=== PATIENT | female | born 1955 | race Caucasian/White ===

== ENCOUNTER → 2016-03-01 | Outpatient (CLI) | payer BC ==
--- NOTE | 2016-03-01 11:40 | DX ---
PA lateral chest x-ray 0946 hours. History: Followup pneumonia. Findings: Comparison to February 07, 2016. There is dense consolidation that has increase in bone both lung bases probably more confluent in the lingula and right lower lobe. There is also subtle focal infiltrate at the right lung apex has devel oped. There are no effusions. Heart size and pulmonary vasculature remain normal. Osseous structures are unchanged. Impression: 1. Interval increase in dense consolidation/pneumonia involving both lung bases. There is also focal new smaller patchy infiltrate at the right lung apex. Rule out possible atypical pneumonia. This study was discussed by telephone with Dr. Amairani Maldonado at 1135 hours.
== END ==
LOC: BMCIMAGING 09:45
PROVIDERS: ATTEND Internal Medicine
DX: J18.9 Pneumonia, unspecified organism (principal)

== ENCOUNTER 2016-03-03 06:11 | Inpatient (IN) | payer BC ==
--- NOTE | 2016-03-03 06:30 | CPEKG ---
Heart Rate: 85 RR Interval: 706 P-R Interval: 136 QRSD Interval: 80 QT Interval: 348 QTC Interval: 414 P [place]: 69 QRS [place]: 69 T Wave [place]: -19 EKG Severity - ABNORMAL ECG - EKG Impression: SINUS RHYTHM EKG Impression: BORDERLINE INFERIOR Q WAVES EKG Impression: ABNORMAL T, CONSIDER ISCHEMIA, INFERIOR LEADS Electronically Signed By: Cori Browning 04-Mar-2016 23:11:48
[2016-03-03] MEDS ORDERED: NS 1,000 ML IV ONE (06:47)
[2016-03-03 06:55] LABS: % IMMATURE GRANULYOCYTES 0.4 % (0.0-1.1); ABSOLUTE IMMATURE GRANULOCYTES 0.04 10^3/uL (0.00-0.10); ADD DIFF? NO; ADD MORPH? NO; ADD SCAN? NO; ATYPICAL LYMPHOCYTE FLAG 0 (0-99); FRAGMENT RBC FLAG 0 (0-99); HEMATOCRIT 39.9 % (38.0-47.0); LEFT SHIFT FLG 0 (0-99); LIPEMIA HEMOLYSIS FLAG 80 (0-99); MEAN CELL HEMOGLOBIN 29.7 pg (27.9-34.1); MEAN CELL HEMOGLOBIN CONCENTR. 32.6 g/dL (32.4-36.7); MEAN CELL VOLUME 91.3 fL (81.5-99.8); MEAN PLATELET VOLUME 9.8 fL (8.7-11.7); PLATELET CLUMPS FLAG 30 (0-99); PLATELET COUNT 546 10^3/uL (150-400); RED BLOOD CELL COUNT 4.37 10^6/uL (4.18-5.33); RED CELL DISTRIBUTION WIDTH 12.5 % (11.5-15.2)
[2016-03-03 07:05] LABS: ANION GAP 15 mEq/L (8-16); CALCIUM 9.2 mg/dL (8.5-10.4); CARBON DIOXIDE 25 mEq/l (22-31); CHLORIDE 105 mEq/L (97-110); CREATININE 0.6 mg/dL (0.6-1.0); GLOMERULAR FILTRATION RATE > 60; GLUCOSE 103 mg/dL (70-100); POTASSIUM 4.5 mEq/L (3.5-5.2); SODIUM 145 mEq/L (134-144)
[2016-03-03] MEDS ORDERED: KETOROLAC 30 MG/1 ML SDV IVP ONE (07:08)
[2016-03-03 07:16] LABS: TROPONIN I < 0.012 ng/mL (0-0.034)
--- NOTE | 2016-03-03 07:29 | EDPHY ---
H & P Stated Complaint: PNA Dx'd in January, with dyspnea and chest discomfort Time Seen by Provider: 03/03/16 06:32 HPI/ROS: HPI The patient presents with cough, back pain, dizziness for the last several days. On February 06 she was diagnosed with a pneumonia based on a chest x- ray, she was started on azithromycin though never entirely improved. She had continued pain, shortness of breath and cough and saw her primary care doctor 2 days ago, she was diagnosed with bilateral pneumonia and started on Levaquin, supplemental oxygen, albuterol nebulizer. For the last 2 days she has not been doing well, unable to sleep, with continued dizziness and generalized malaise. She lives alone and is having difficulty going up and down the steps because of all of her symptoms. She has not had a fever. REVIEW OF SYSTEMS Constitutional: No fever, no chills. Eyes: No discharge. ENT: No sore throat. Cardiovascular: + chest pain, no palpitations. Respiratory: +cough, + shortness of breath. Gastrointestinal: No abdominal pain, no vomiting. Genitourinary: No hematuria. Musculoskeletal: No back pain. Skin: No rashes. Neurological: No headache. PMHx: History of colon cancer Soc Hx: Lives at home by herself PHYSICAL General Appearance: Alert, no distress Eyes: Pupils equal and round no pallor or injection ENT, Mouth: Mucous membranes moist Respiratory: There are no retractions, lungs are clear to auscultation Cardiovascular: Regular rate and rhythm Gastrointestinal: Abdomen is soft and non-tender, no masses, bowel sounds normal Neurological: A&O, moves all extremities Skin: Warm and dry, no rashes Musculoskeletal: Neck is supple non tender Extremities: symmetrical, full range of motion Psychiatric: Patient is oriented X 3, there is no agitation Source: Patient Exam Limitations: No limitations - Personal History Current Tetanus/Diphtheria Vaccine: No - Medical/Surgical History Hx Asthma: No Hx Chronic Respiratory Disease: No Hx Diabetes: No Hx Cardiac Disease: No Hx Renal Disease: No Hx Cirrhosis: No Hx Alcoholism: No Hx HIV/AIDS: No Hx Splenectomy or Spleen Trauma: No Other PMH: PSHx: colon resection, 2 hernia repair, vulvectomy, heart murmur, vasovagal syncope. PMHx: diverticulitis, IBS - Social History Smoking Status: Never smoked Constitutional: Initial Vital Signs Temperature (C) 37 C 03/03/16 06:15 Heart Rate 91 03/03/16 06:15 Respiratory Rate 18 03/03/16 06:15 Blood Pressure 137/101 H 03/03/16 06:15 O2 Sat (%) 91 L 03/03/16 06:15 O2 Delivery Mode Nasal Cannula O2 (L/minute) 2 Allergies/Adverse Reactions: ciprofloxacin Allergy (Verified 03/03/16 06:14) clindamycin Allergy (Verified 03/03/16 06:14) Home Medications: Medication Instructions Recorded Advil 03/03/16 Albuterol 03/03/16 levAQUIN 03/03/16 Medical Decision Making - Diagnostics EKG Interpretation: EKG: Complete interpretation has been separately recorded in the [facility]) archive. Summary impression: T-wave inversions in 3, AVF, V1, no old for comparison Imaging: Chest x-ray two views shows bilateral lower lobe infiltrates, similar to prior chest x-ray 2 days ago interpreted by me, radiology interpretation is pending ED Course/Re-evaluation: In the ER, the patient was given IV fluids. Basic labs were obtained including blood cultures. Her vital signs were stable except for hypoxia which improved with 2 L of oxygen via nasal cannula. Chest x-ray was obtained which shows continued bilateral lower lobe pneumonia. She was started on azithromycin and ceftriaxone. Her basic labs were unremarkable with a normal BUN and white blood cell count. Given that she is not doing well at home despite maximum outpatient treatment I plan to admit her to the hospitalist service. I discussed the case with Azul Chadwick and we plan to admit the patient. Differential Diagnosis: This is a relatively healthy 60-year-old female with a remote history of colon cancer who presents from home after being diagnosed with a pneumonia bilaterally 2 days ago with worsening symptoms of back pain, dizziness, general malaise. Differential diagnosis includes pneumonia, pleural effusion, parapneumonic effusion, sepsis. - Data Points Laboratory Results: Laboratory Results 03/03/16 06:35 03/03/16 06:35 03/03/16 06:35 WBC 9.43 10^3/uL (3.80-9.50) RBC 4.37 10^6/uL (4.18-5.33) Hgb 13.0 g/dL (12.6-16.3) Hct 39.9 % (38.0-47.0) MCV 91.3 fL (81.5-99.8) MCH 29.7 pg (27.9-34.1) MCHC 32.6 g/dL (32.4-36.7) RDW 12.5 % (11.5-15.2) Plt Count 546 H 10^3/uL (150-400) MPV 9.8 fL (8.7-11.7) Neut % (Auto) 71.0 % (39.3-74.2) Lymph % (Auto) 14.1 L % (15.0-45.0) [place] % (Auto) 8.8 % (4.5-13.0) Eos % (Auto) 5.5 % (0.6-7.6) Baso % (Auto) 0.2 L % (0.3-1.7) Nucleat RBC Rel Count 0.0 % (0.0-0.2) Absolute Neuts (auto) 6.69 H 10^3/uL (1.70-6.50) Absolute Lymphs (auto) 1.33 10^3/uL (1.00-3.00) Absolute Monos (auto) 0.83 H 10^3/uL (0.30-0.80) Absolute Eos (auto) 0.52 H 10^3/uL (0.03-0.40) Absolute Basos (auto) 0.02 10^3/uL (0.02-0.10) Absolute Nucleated RBC 0.00 10^3/uL (0-0.01) Immature Gran % 0.4 % (0.0-1.1) Immature Gran # 0.04 10^3/uL (0.00-0.10) Sodium 145 H mEq/L (134-144) Potassium 4.5 mEq/L (3.5-5.2) Chloride 105 mEq/L (97-110) Carbon Dioxide 25 mEq/l (22-31) Anion Gap 15 mEq/L (8-16) BUN 8 mg/dL (7-23) Creatinine 0.6 mg/dL (0.6-1.0) Estimated GFR > 60 Glucose 103 H mg/dL (70-100) Calcium 9.2 mg/dL (8.5-10.4) Troponin I < 0.012 ng/mL (0-0.034) Medications Given: Discontinued Medications Sodium Chloride (Ns) 1,000 mls @ 0 mls/hr IV ONCE ONE PRN Reason: Wide Open Stop: 03/03/16 06:48 Last Admin: 03/03/16 06:49 Dose: 1,000 mls Ketorolac Tromethamine (Toradol) 30 mg IVP EDNOW ONE Stop: 03/03/16 07:09 Last Admin: 03/03/16 07:32 Dose: 30 mg Departure - Departure Disposition: [facility] Inpatient Acute Clinical Impression: Pneumonia, Hypoxia Condition: Fair
[2016-03-03] MEDS ORDERED: cefTRIAXone 1 GM in D5W 50 ML IV ONE (07:34)
[2016-03-03] MEDS ORDERED: AZITHROMYCIN 250 MG TAB PO ONE (07:35)
--- NOTE | 2016-03-03 08:26 | DX ---
PA and Lateral Chest March 03, 2016 Clinical Indications: Worsening pneumonia. Comparison: March 01, 2016, February 07, 2016. Findings: Since two days prior, there is no significant change in the bilateral lower lobe consolidat ion. Costophrenic angles are clear. Bones are grossly unremarkable. Impression: Stable bilateral lower lobar consolidation.
[2016-03-03] MEDS ORDERED: ALBUTEROL 3 ML DEYVIAL IH PRN (09:52)
[2016-03-03] MEDS: HYDROCODONE/APAP 5/325 TAB PO PRN (10:31)
--- NOTE | 2016-03-03 10:48 | GHP ---
[f rep st] HISTORY AND PHYSICAL DATE OF ADMISSION: 03/03/2016 CHIEF COMPLAINT: Dizziness, back pain, general malaise. HPI: This is a 60-year-old female, with a history of colon cancer, who is not immunosuppressed, who was first diagnosed with pneumonia on February 06 by her primary care provider and was prescribed a Z-Sergio, which she completed after 5 days. After finishing the azithromycin, she felt that she was not really better but was not clearly worse. Since the onset of symptoms, she has continued to have fevers and chills, which she has taken Advil for around the clock for about the past month. The patient reports nonproductive cough. She had some back pain. Three days ago, she felt that she really was not getting better and went to see her primary care provider again, at which time a chest x-ray was done, which confirmed persistent bibasilar pneumonia. She has since started Levaquin, for which she has taken for 2 days. During her last office visit, she was noted to be hypoxic and was prescribed home oxygen. At 3:30 a.m. this morning, she woke up with back pain, chills and felt dizzy and decided to come to the emergency department for further evaluation. PAST MEDICAL HISTORY: 1. Colon cancer, status post resection and chemotherapy in 1992. 2. Lichen planus. 3. IBS. 4. Diverticulitis. 5. Jugular vein clot PAST SURGICAL HISTORY: 1. Hernia repair. 2. Colon resection. HOME MEDICATIONS: Reviewed. Refer to [facility] for details. ALLERGIES: Clindamycin and Cipro causes vomiting. SOCIAL HISTORY: The patient drinks alcohol occasionally. She denies any tobacco or illicit drug use. FAMILY HISTORY: She was adopted. REVIEW OF SYSTEMS: A comprehensive 10-point review of systems was done and is negative, except for those mentioned in HPI and below. Skin: She denies any active lichen planus. She is not on any immunosuppressive agents at this time for treatment. Rheumatologic: Denies any new joint pain, other than some pain and achiness in her shoulders and her back. PHYSICAL EXAM: VITAL SIGNS: Blood pressure 122/84, heart rate 74, respiratory rate 14, O2 saturation 95% on room air. Temperature afebrile. GENERAL: No acute distress. HEAD: Normocephalic, atraumatic. Eyes are PERRLA. Sclerae anicteric. MOUTH: Moist mucous membranes. NECK: Supple. No lymphadenopathy. CARDIOVASCULAR: S1, S2. No JVD. No lower extremity edema. PULMONARY: Bibasilar rales. There is no respiratory distress. There is no dullness to percussion. There are no wheezes. ABDOMEN: Soft, nontender, nondistended. No guarding or rebound tenderness. Normoactive bowel sounds. EXTREMITIES: No clubbing or cyanosis. NEUROLOGIC: Cranial nerves 2-12 grossly intact. No focal motor or sensory deficits. SKIN: Clear. No rashes. DIAGNOSTICS: WBC 9.4, hemoglobin 13, hematocrit 39.9, platelets 546. Sodium 145, potassium 4.5, chloride 105, CO2 25, BUN 8, creatinine 0.6, glucose 103, troponin less than 0.012. EKG, which I visualized and personally interpreted, shows sinus rhythm, rate 85 beats per minute with some T-wave inversion in leads 3 and AVF. Chest x-ray, which I visualized and personally interpreted, shows stable bilateral lower lobar consolidations. ASSESSMENT AND PLAN: This is a 60-year-old female, diagnosed with: 1. Pneumonia on 02/07/2016 and was treated with a Z-Sergio presenting with bibasilar lobar consolidations, most likely due to incompletely treated community-acquired pneumonia. The patient was started on levothyroxine, by her primary care provider, which will be continued. I have discussed the case with Dr. Tunde Almeida from Pulmonology who will consult as well. For now, we will defer further testing pending how she does with continued antibiotic treatment. 2. Back pain, most likely due to above. Plan is treat supportively with NSAIDs and Tylenol and Vicodin as needed for breakthrough pain. Will consider adding a D-dimer and CT angio of the chest, if it persists, to rule out pulmonary embolism. 3. EKG with small Q in lead 3 and inverted T in lead 3. 4. Given this finding, will send a D-dimer and consider CT angiogram of the chest if positive. 5. The patient will be admitted to the hospital under observation status for now, pending further workup which may eventually qualify her for inpatient hospitalization. ADDENDUM: Dimer is elevated. Patient continues to have back pain and shortness of breath. She does have a history of a jugular vein clot associated with a port. Will proceed with CTA chest to rule out pulmonary embolism /[id number]/MODL MTDD
[2016-03-03] MEDS: ONDANSETRON 4 MG/2 ML VIAL IVP PRN (13:16)
[2016-03-03] MEDS ORDERED: IOPAMIDOL (ISOVUE 370) 75 ML BTL IV ONE (15:31)
--- NOTE | 2016-03-03 16:30 | CT ---
CT Pulmonary Angiogram History: Chest pain, pneumonia. Comparison: PA and lateral chest March 03, 2016. CT abdomen and pelvis March 26, 2008. Technique: Axial contrast-enhanced images were obtained through the chest following the uneventful in travenous administration of 90 mL Isovue-370. Creatinine is 0.6. Multiplanar reformations were perfo rmed through the pulmonary arteries. Dose reduction techniques were utilized. Findings: This is a good quality study with visualization of the vessels to the subsegmental level. T here is no pulmonary embolus. There is patchy multifocal consolidation bilaterally, most prominent in the lingula, right middle lobe, and bilateral lower lobes. Right lower lobe bulla is noted. Right lo wer lobe granuloma is present. Heart size is normal. The interventricular septum is normal. The aorta is normal caliber without dissection. Mildly prominent lymph nodes may be reactive. A reference 1.2 x 1.3 cm AP window node is present (series 5 image 71). The bones are normal for age. A 2.4 cm cyst in the dome of the liver has increased in size since 2008. A right hepatic hemangioma i s poorly characterized on today's study due to technique. A subcentimeter left hepatic hypodensity is too small to characterize, statistically likely to represent cyst. Impressions 1. No visible pulmonary embolus. 2. Multifocal consolidation consistent with pneumonia. Radiographic follow up is recommended to resol ution. 3. Mildly prominent mediastinal and hilar lymph nodes, likely reactive. CT follow up when the patient 's pneumonia has cleared. 4. Additional findings as above. Findings and recommendations discussed with Karyn, the patient's nurse, today (March 03, 2016), at 1 620 hours.
[2016-03-03] MEDS: IBUPROFEN 600 MG TAB PO PRN (17:16)
[2016-03-03] MEDS: guaiFENesin 600 MG TAB.ER PO SCH (21:52)
[2016-03-04] MEDS: IBUPROFEN 600 MG TAB PO PRN ×3 (01:44→14:32)
[2016-03-04 05:21] LABS: % IMMATURE GRANULYOCYTES 0.5 % (0.0-1.1); ABSOLUTE IMMATURE GRANULOCYTES 0.04 10^3/uL (0.00-0.10); ADD DIFF? NO; ADD MORPH? NO; ADD SCAN? NO; ATYPICAL LYMPHOCYTE FLAG 0 (0-99); FRAGMENT RBC FLAG 0 (0-99); HEMATOCRIT 33.2 % (38.0-47.0); HEMOGLOBIN 10.9 g/dL (12.6-16.3); LEFT SHIFT FLG 0 (0-99); LIPEMIA HEMOLYSIS FLAG 80 (0-99); MEAN CELL HEMOGLOBIN CONCENTR. 32.8 g/dL (32.4-36.7); MEAN CELL VOLUME 91.5 fL (81.5-99.8); MEAN PLATELET VOLUME 9.9 fL (8.7-11.7); PLATELET CLUMPS FLAG 20 (0-99); PLATELET COUNT 461 10^3/uL (150-400); RED BLOOD CELL COUNT 3.63 10^6/uL (4.18-5.33); RED CELL DISTRIBUTION WIDTH 12.6 % (11.5-15.2)
[2016-03-04 05:35] LABS: ALANINE AMINOTRANSFERASE 31 IU/L (9-52); ALBUMIN 2.5 g/dL (3.5-5.0); ALKALINE PHOSPHATASE 124 IU/L (38-126); ANION GAP 9 mEq/L (8-16); ASPARTATE AMINOTRANSFERASE 24 IU/L (14-46); BILIRUBIN,TOTAL 0.4 mg/dL (0.1-1.4); CALCIUM 8.6 mg/dL (8.5-10.4); CARBON DIOXIDE 27 mEq/l (22-31); CHLORIDE 105 mEq/L (97-110); CREATININE 0.5 mg/dL (0.6-1.0); GLOMERULAR FILTRATION RATE > 60; GLUCOSE 97 mg/dL (70-100); POTASSIUM 4.6 mEq/L (3.5-5.2); SODIUM 141 mEq/L (134-144); TOTAL PROTEIN 5.3 g/dL (6.3-8.2)
[2016-03-04] MEDS ORDERED: LEVALBUTEROL 1.25 MG/3 ML DEYVIAL IH PRN (09:25)
--- NOTE | 2016-03-04 10:07 | GCON ---
[f rep st] CONSULTATION PULMONARY CONSULTATION. DATE OF CONSULTATION: 03/03/2016 REASON FOR CONSULTATION: Pneumonia. HISTORY: The patient is a very pleasant, healthy 60-year-old, who was admitted early this morning with pneumonia. Her recent history is pertinent for 1 month of feeling poorly, with pulmonary symptoms. She developed increasing shortness of breath associated with cough. She had to stop her usual daily workouts and had difficult time with stairs. She was seen by her primary care provider. Chest x-ray at that time showed bibasilar infiltrates. She was placed on azithromycin however she did not significantly improve with this. Her symptoms persisted. She continued to have cough, shortness of breath and this was associated with fevers, chills, and sweats. She had malaise and fatigue. However, she did not return to her primary care physician at that time. She finally went back and was seen a couple a days ago. She was placed on Levaquin and an inhaler. Chest x-ray was repeated which showed persistent and more dense , slightly more extensive bibasilar infiltrates. This has been associated with some back achiness as well. She has taken the Levaquin for a couple a days, but feels that she is not getting any better, perhaps getting worse. When she was last seen she was also found to be mildly hypoxemic and was sent home on oxygen. She presented to the emergency department this morning secondary to lack of improvement. PAST MEDICAL HISTORY: Is remarkable for colon cancer. She was resected and treated with chemotherapy over 20 years ago. There is no history of recurrent disease. She has a history of lichen planus and uses topical steroids, irritable bowel disease, history of diverticulitis, and a clot related to her port during chemotherapy PAST SURGICAL HISTORY: Is remarkable for partial colectomy for colon cancer and a herniorrhaphy. HOME MEDICATIONS: Included Levaquin, albuterol and oxygen which was started 2 days prior. She takes no other medications on a regular basis. She has been taking ibuprofen every 4-6 hours secondary to her recent symptoms. SOCIAL HISTORY: She is . She is a never smoker. Significant alcohol is negative. She does office work. No one else has been particularly ill that she has been in contact with. She has not traveled recently. She has no other exposures, no hot tub, does not have birds or exotic animals, etc. FAMILY HISTORY: Negative/noncontributory as she is adopted. REVIEW OF SYSTEMS: She has back pain which is achy, across the low to midback, not pleuritic. She has had no significant GI symptoms, no loss of consciousness , no nausea or vomiting. She has no history of heart or lung disease previously. There is no history of collagen vascular disease. There is no history of renal disease. PHYSICAL EXAMINATION: GENERAL: Reveals a very pleasant woman who is in no distress. VITAL SIGNS: Oxygen is in place at 2 L with saturations in the low 90s. Blood pressure is 120/80, respiratory rate 16, heart rate 72. She is afebrile, and has been so since admission. HEENT: Unremarkable for lymphadenopathy or thyromegaly. There is no pharyngitis. The chest reveals bibasilar rales with some consolidative changes. There are no wheezes, no rhonchi currently. HEART: Regular in rate and rhythm without significant murmur. There are no gallops. ABDOMEN: Soft, nontender. Bowel sounds are present. There is no organomegaly. EXTREMITIES: Unremarkable for edema, cords , or tenderness. SKIN: Without rash. NEUROLOGIC: Examination is nonfocal/ normal. DATABASE: Chest x-ray as described above, with bibasilar infiltrates, more dense than her x-ray done 3-[address] scan of the chest was done. There was no evidence of pulmonary embolic disease. There is consolidation consistent with her x-ray at the bases. This is patchy, present in the lower lobes as well as the lingula and middle lobes. Minimally enlarged lymph nodes were noted, probably reactive. LABORATORY: White blood cell count is 9400, hematocrit 39, platelets 546,000. Basic metabolic panel was within normal limits, troponin negative. ASSESSMENT: Community-acquired pneumonia. I think her course is compatible with pneumonia, probably only partially treated by azithromycin initially. Despite persistence and progression of her symptoms, she delayed followup thinking she might get better. She has been started on Levaquin which is appropriate. She was quite tachycardic and uncomfortable with beta agonists, and these will be held for now. Alternative diagnoses seem less likely. Inflammatory lung disease cannot be excluded at this time; however, there is no history or suggestion of this. If her pneumonia were not to improve then further evaluation for unusual inflammatory disorders would be done. Clinically , she is doing quite well. She is mildly hypoxemic, looks well, is not tachypneic or tachycardic. Continuing levofloxacin would be appropriate. Beta agonist can be given if needed. Because of her reaction to albuterol, Xopenex would be of preference. PLAN AND RECOMMENDATIONS: The patient will be followed with you. Antibiotics will be continued. Inflammatory screening labs will be ordered. She should be encouraged to cough and expectorates if she has sputum. Ambulation is encouraged. I anticipate that she will require approximately 3 days of hospitalization for pneumonia, longer if she does not respond. /[id number]/MODL MTDD
[2016-03-04 10:18] LABS: HEMATOCRIT 33.2 % (38.0-47.0)
[2016-03-04] MEDS: ENOXAPARIN 40 MG/0.4 ML SYR SC SCH (10:49)
[2016-03-04] MEDS: guaiFENesin 600 MG TAB.ER PO SCH (11:03)
[2016-03-04 11:29] LABS: SEDIMENTATION RATE > 145 MM/HR (0-30)
--- NOTE | 2016-03-04 15:28 | HOSPPROG ---
Hospitalist Progress Note Assessment/Plan: Patient is a 60-year-old female with a history of colon cancer who initially had pneumonia on February 06. She was treated with azithromycin and felt like she has never really gotten better. Since her onset of symptoms she has had fever and chills. She has taken Advil around the clock for the past month. She woke up again with back pain chills and felt dizzy and came to the emergency room further evaluation. #. community-acquired pneumonia/bilateral lobe * chest x-ray shows stable bilateral lower lobar consolidations * she is on Levaquin * current blood culture show no growth * has been afebrile and with a stable white blood cell count #. Acute hypoxemic respiratory failure * requiring 4 liters of O2 * will follow #. GERD * not on treatment * has reflux symptoms * start PPI #.anemia * repeat labs in a.m. #. Osteoporosis: on Vitamin D * patient is very active/goes to the gym 4 x week #. back pain * D-dimer was elevated * a CTA of the chest was performed which was negative for a PE * encouraged her to alternate Tylenol with ibuprofen #. Mildly prominent mediastinal and hilar lymph nodes/ likely reactive * CT f/u in the future #. Hx of colon cancer s/p resection and chemo in 1992 #. plan: patient will require another midnight stay/ on 4 liters of oxygen/ will start PPI, get repeat labs in a.m. Subjective: Rhianna feels tired and worn out. Objective: Vital Signs Temp Pulse Resp BP Pulse Ox 36.8 C 76 18 123/71 H 93 03/04/16 15:07 03/04/16 15:07 03/04/16 15:07 03/04/16 15:07 03/04/16 15:07 Laboratory Results 03/04/16 04:14 03/04/16 04:14 03/03/16 03/04/16 03/05/16 05:59 05:59 05:59 Intake Total 1550 Output Total 100 Balance 1550 -100 - Physical Exam Constitutional: no apparent distress, No not in pain (back) Eyes: PERRL Ears, Nose, Mouth, Throat: hearing normal Cardiovascular: regular rate and rhythym, no murmur, rub, or gallop Respiratory: rhonchi (right base, few scattered) Skin: warm, normal color Musculoskeletal: full muscle strength Neurologic: AAOx3 Psychiatric: interacting appropriately ICD10 Worksheet Patient Problems: Problems Problem Status Diagnosed Hypoxia Acute Pneumonia Acute
[2016-03-04] MEDS ORDERED: GUAIFENESIN/DM 10 ML UDCUP PO PRN (16:03)
[2016-03-04] MEDS ORDERED: MELATONIN 3 MG TAB PO PRN (16:04)
[2016-03-04] MEDS: PANTOPRAZOLE SODIUM 40 MG TAB PO SCH (18:12)
--- NOTE | 2016-03-04 18:19 | PDINTPN ---
[facility] Progress Note Assessment/Plan: Assessment: Community-acquired pneumonia. On Levaquin. Clinically doing well. No significant secretions. Rales persist. Plan: Continue present antibiotics, Xopenex if needed. Mucolytics likely not to be helpful at this time. Recommend keeping her in the hospital into Sunday. Follow-up chest x-ray at that time. Further serologies pending. Subjective: Doing okay. Feels her breathing is little better. Energy somewhat better. Has low back pain, dull, on the right. Not bringing up any sputum. Not much cough. Has had some sweats without significant fevers Objective: Vital Signs Temp Pulse Resp BP Pulse Ox 36.8 C 76 18 123/71 H 93 03/04/16 15:07 03/04/16 15:07 03/04/16 15:07 03/04/16 15:07 03/04/16 15:07 Laboratory Tests 03/04/16 04:14 Hct 33.2 L Sodium 141 Potassium 4.6 Chloride 105 Carbon Dioxide 27 BUN 8 Creatinine 0.5 L Calcium 8.6 Total Bilirubin 0.4 ALT 31 Albumin 2.5 L Rheum Factor Semi-Quant < 8.6 Mycoplasma pneumon IgM NEGATIVE Physical Exam - Physical Exam General Appearance: alert, no apparent distress EENT: other (Nasal cannula 3 L) Neck: normal inspection Respiratory: lungs clear (Anteriorly), rales (At the bases, right greater than left), No pleural rub Cardiac/Chest: regular rate, rhythm, systolic murmur Abdomen: normal bowel sounds, non-tender, soft Back: Normal inspection Skin: normal color, warm/dry Extremities: No pedal edema Neuro/Psych: no motor/sensory deficits, No cognition abnormalities ICD10 Worksheet Patient Problems: Problems Problem Status Diagnosed Hypoxia Acute Pneumonia Acute
[2016-03-04] MEDS ORDERED: ONDANSETRON DISINTEGRATING 4 MG TAB ONE (20:46)
[2016-03-04] MEDS: HYDROCODONE/APAP 5/325 TAB PO PRN (20:52)
[2016-03-04] MEDS: ONDANSETRON 4 MG/2 ML VIAL IVP PRN (20:52)
[2016-03-05] MEDS ORDERED: ACETAMINOPHEN 325 MG TAB PO PRN (04:36)
[2016-03-05 05:06] LABS: % IMMATURE GRANULYOCYTES 0.4 % (0.0-1.1); ABSOLUTE IMMATURE GRANULOCYTES 0.03 10^3/uL (0.00-0.10); ADD DIFF? NO; ADD MORPH? NO; ADD SCAN? NO; ATYPICAL LYMPHOCYTE FLAG 20 (0-99); FRAGMENT RBC FLAG 0 (0-99); HEMATOCRIT 33.2 % (38.0-47.0); HEMOGLOBIN 10.8 g/dL (12.6-16.3); LEFT SHIFT FLG 0 (0-99); LIPEMIA HEMOLYSIS FLAG 80 (0-99); MEAN CELL HEMOGLOBIN 29.7 pg (27.9-34.1); MEAN CELL HEMOGLOBIN CONCENTR. 32.5 g/dL (32.4-36.7); MEAN CELL VOLUME 91.2 fL (81.5-99.8); MEAN PLATELET VOLUME 9.9 fL (8.7-11.7); PLATELET CLUMPS FLAG 0 (0-99); PLATELET COUNT 470 10^3/uL (150-400); RED BLOOD CELL COUNT 3.64 10^6/uL (4.18-5.33); RED CELL DISTRIBUTION WIDTH 12.5 % (11.5-15.2)
[2016-03-05] MEDS: ACETAMINOPHEN 500 MG TAB PO PRN ×2 (05:14→12:28)
[2016-03-05 05:26] LABS: ANION GAP 7 mEq/L (8-16); CALCIUM 8.4 mg/dL (8.5-10.4); CARBON DIOXIDE 29 mEq/l (22-31); CHLORIDE 103 mEq/L (97-110); CREATININE 0.6 mg/dL (0.6-1.0); GLOMERULAR FILTRATION RATE > 60; GLUCOSE 91 mg/dL (70-100); POTASSIUM 4.7 mEq/L (3.5-5.2); SODIUM 139 mEq/L (134-144)
[2016-03-05] MEDS: PANTOPRAZOLE SODIUM 40 MG TAB PO SCH (08:55)
[2016-03-05] MEDS: ENOXAPARIN 40 MG/0.4 ML SYR SC SCH (08:55)
--- NOTE | 2016-03-05 15:32 | HOSPPROG ---
Hospitalist Progress Note Assessment/Plan: Patient is a 60-year-old female with a history of colon cancer who initially had pneumonia on February 06. She was treated with azithromycin and felt like she has never really gotten better. Since her onset of symptoms she has had fever and chills. She had taken Advil around the clock for the past month. She woke up again with back pain chills and felt dizzy and came to the emergency room further evaluation. #. community-acquired pneumonia/bilateral lobe * chest x-ray shows stable bilateral lower lobar consolidations * she is on Levaquin * current blood culture show no growth * has been afebrile and with a stable white blood cell count * continues to feel poorly without any improvement * elevated sed rate, rheumatoid factor is negative #. Acute hypoxemic respiratory failure * requiring 4 liters of O2 * Patient has no history of smoking as very active and fit * will get an echocardiogram to further evaluate #. GERD * initiating PPI has helped her symptoms #.anemia * ongoing * will check iron studies /she has hemorrhoids so her occult blood screen would be positive #. constipation * add bowel protocol #. Osteoporosis: on Vitamin D * patient is very active/goes to the gym 4 x week #. constipation * add bowel protocol #. back pain * D-dimer was elevated * a CTA of the chest was performed which was negative for a PE * Tylenol with ibuprofen #. Mildly prominent mediastinal and hilar lymph nodes/ likely reactive * CT f/u in the future #. Hx of colon cancer s/p resection and chemo in 1992 #. plan: will discuss with Dr. Almeida today. Message left for him to follow-up in regards to her care Subjective: Rhianna feels poorly. Feels exhausted Objective: Vital Signs Temp Pulse Resp BP Pulse Ox 37.0 C 73 16 98/71 L 90 L 03/05/16 08:00 03/05/16 08:00 03/05/16 08:00 03/05/16 08:00 03/05/16 08:00 Laboratory Results 03/05/16 04:03 03/05/16 04:03 - Physical Exam Constitutional: appears nourished, not in pain Eyes: PERRL Ears, Nose, Mouth, Throat: hearing normal Cardiovascular: regular rate and rhythym Respiratory: no respiratory distress, rhonchi ( mainly in the right base) Gastrointestinal: normoactive bowel sounds Skin: warm Musculoskeletal: full muscle strength Neurologic: AAOx3 Psychiatric: interacting appropriately ICD10 Worksheet Patient Problems: Problems Problem Status Diagnosed Hypoxia Acute Pneumonia Acute
[2016-03-05] MEDS ORDERED: BISACODYL 10 MG SUPP PR PRN (15:33)
[2016-03-05] MEDS ORDERED: LACTULOSE 20 GM/30 ML UDCUP PO PRN (15:33)
[2016-03-05] MEDS ORDERED: MAGNESIUM HYDROXIDE 30 ML UDCUP PO PRN (15:33)
[2016-03-05] MEDS ORDERED: POLYETHYLENE GLYCOL 3350 17 GM PKT PO PRN (15:33)
--- NOTE | 2016-03-05 18:33 | SOAPPROG ---
SOAP Progress Note Assessment/Plan: Assessment: Pulmonary infiltrates. Presumably community-acquired pneumonia, however no improvement after 5 days of antibiotics. On Levaquin. Clinically looks fairly well but does not feel any better. Rales persist, right greater than left. Not bringing up any mucus. Erythrocyte sedimentation rate is significantly increased raising possibility of inflammatory disorders. Further more aggressive evaluation may be indicated. Plan: Continue present antibiotics, Xopenex if needed. Mucolytics likely not to be helpful. Will get follow-up PA and lateral chest x-ray tomorrow. Bronchoscopy may be needed, with biopsies. Will check HIV but has no risk factors for this. Further serologies pending but I anticipate this will not provide alternative diagnosis. All the above discussed with the patient. Subjective: Slept better last night however she does not feel any better today. Still feels fever taylor clammy although no temperature elevations. Minimal congestion. Still short of breath walking. Objective: Vital Signs Temp Pulse Resp BP Pulse Ox 36.6 C 66 16 115/70 91 L 03/05/16 16:00 03/05/16 16:00 03/05/16 16:00 03/05/16 16:00 03/05/16 16:00 Laboratory Results 03/05/16 04:03 03/05/16 04:03 03/04/16 03/05/16 03/06/16 05:59 05:59 05:59 Intake Total 1100 Balance 1100 Laboratory Tests 03/04/16 04:14 ESR > 145 H Mycoplasma pneumon IgM NEGATIVE Physical Exam - Physical Exam General Appearance: alert, no apparent distress EENT: other (Nasal cannula 4 L) Neck: normal inspection (No jugular venous distension, no lymphadenopathy), No lymphadenopathy (R), No lymphadenopathy (L) Respiratory: rales (At bases persist, right significantly greater than left.), No rhonchi, No wheezing Cardiac/Chest: systolic murmur (Systolic murmur present, no gallops, no rubs) Abdomen: normal bowel sounds, non-tender, soft Skin: normal color, warm/dry Lymphatic: no adenopathy Extremities: No pedal edema Neuro/Psych: no motor/sensory deficits, No cognition abnormalities ICD10 Worksheet Patient Problems: Problems Problem Status Diagnosed Hypoxia Acute Pneumonia Acute
[2016-03-05 19:09] LABS: % SATURATION 11 % (20-55); TOTAL IRON BINDING CAPACITY 235 ug/dL (260-490)
[2016-03-05] MEDS ORDERED: ONDANSETRON DISINTEGRATING 4 MG TAB ONE (19:13)
[2016-03-05] MEDS: HYDROCODONE/APAP 5/325 TAB PO PRN (19:15)
[2016-03-05] MEDS: SENNOSIDES/DOCUSATE SODIUM TAB PO SCH (19:16)
[2016-03-05] MEDS: ONDANSETRON 4 MG/2 ML VIAL IVP PRN (19:16)
[2016-03-06] MEDS: ACETAMINOPHEN 500 MG TAB PO PRN ×2 (02:22→08:03)
[2016-03-06 05:18] LABS: % IMMATURE GRANULYOCYTES 0.4 % (0.0-1.1); ABSOLUTE IMMATURE GRANULOCYTES 0.04 10^3/uL (0.00-0.10); ADD DIFF? NO; ADD MORPH? NO; ADD SCAN? NO; ATYPICAL LYMPHOCYTE FLAG 0 (0-99); FRAGMENT RBC FLAG 0 (0-99); HEMATOCRIT 33.3 % (38.0-47.0); HEMOGLOBIN 10.9 g/dL (12.6-16.3); LEFT SHIFT FLG 0 (0-99); LIPEMIA HEMOLYSIS FLAG 80 (0-99); MEAN CELL HEMOGLOBIN 29.7 pg (27.9-34.1); MEAN CELL HEMOGLOBIN CONCENTR. 32.7 g/dL (32.4-36.7); MEAN CELL VOLUME 90.7 fL (81.5-99.8); MEAN PLATELET VOLUME 9.8 fL (8.7-11.7); PLATELET CLUMPS FLAG 0 (0-99); PLATELET COUNT 445 10^3/uL (150-400); RED BLOOD CELL COUNT 3.67 10^6/uL (4.18-5.33); RED CELL DISTRIBUTION WIDTH 12.4 % (11.5-15.2)
[2016-03-06] MEDS: ENOXAPARIN 40 MG/0.4 ML SYR SC SCH (08:02)
[2016-03-06] MEDS: PANTOPRAZOLE SODIUM 40 MG TAB PO SCH (08:04)
[2016-03-06] MEDS: SENNOSIDES/DOCUSATE SODIUM TAB PO SCH ×2 (08:04→20:54)
--- NOTE | 2016-03-06 09:58 | SOAPPROG ---
[id number] after 6 days of Levaquin. Clinically looks fairly good but does not feel any better. Rales persist, right greater than left. Not bringing up any mucus. Erythrocyte sedimentation rate is significantly increased raising possibility of inflammatory disorders. HIV negative. Further evaluation indicated: Including bronchoscopy with lavage and biopsies looking for inflammatory lung disease such as [employer], eosinophilic pneumonia, etc.. Plan: Continue present antibiotics, Xopenex if needed. Await today's chest x- ray. Bronchoscopy likely needed, with biopsies: If so, possibly tomorrow or Sunday. Further serologies pending but I anticipate this will not provide definite alternative diagnosis. I will be signing out to Dr. Han. Subjective: No changes, remains short of breath with non pleuritic back achiness. Occasional cough, no significant mucous. Afebrile. Feels clammy. Objective: Vital Signs Temp Pulse Resp BP Pulse Ox 36.8 C 71 16 104/62 91 L 03/06/16 07:16 03/06/16 08:50 03/06/16 08:50 03/06/16 07:16 03/06/16 08:50 Laboratory Results 03/06/16 04:21 03/05/16 04:03 03/05/16 03/06/16 03/07/16 05:59 05:59 05:59 Intake Total 1100 400 Balance 1100 400 Laboratory Tests 03/06/16 04:21 HIV 1&2 Antibody NEGATIVE Repeat chest x-ray: Pending. Cardiac echo in progress. Left ventricular function normal, hyperdynamic. I expect pulmonary artery pressures to be mildly elevated secondary to current lung problems. Physical Exam - Physical Exam General Appearance: alert, no apparent distress EENT: other (OxyMask in place of 5 L) Neck: normal inspection (No JVD, no lymphadenopathy) Respiratory: rales (Persisted bases, right greater than left) Cardiac/Chest: regular rate, rhythm Abdomen: normal bowel sounds, non-tender, soft, No organomegaly Skin: normal color, warm/dry Lymphatic: no adenopathy Extremities: No pedal edema Neuro/Psych: no motor/sensory deficits, No cognition abnormalities ICD10 Worksheet Patient Problems: Problems Problem Status Diagnosed Hypoxia Acute Pneumonia Acute
--- NOTE | 2016-03-06 10:32 | ECHO ---
[id number] + + [address] : : [place] [address] : : [phone] + + Adult Echocardiographic Report + -----+ :Name: FORREST MCNAMARA SStweiy Date: 03/06/2016 09:05 AM : : Hospital Admission Number: [id number] Location : 370: :: 1955 Gender: Female Height: 61 in : :Age: 60 yrs Race: WH Weight: 110 lb : :Reason For Study: Persistent shortness of breath : : BSA: 1.5 meters2 : + -----+ MMode/2D Measurements & Calculations IVSd: 0.79 cm LVIDd: 3.8 cm FS: 42.2 % Ao root diam: LVPWd: 1.0 cm LVIDs: 2.2 cm EDV(Teich): 3.3 cm 60.5 ml LA dimension: ESV(Teich): 2.8 cm 15.7 ml EF(Teich): 74.0 % LVLd ap4: 7.0 cm SV(MOD-sp4): EDV(MOD-sp4): 37.0 ml 47.0 ml LVLs ap4: 5.8 cm ESV(MOD-sp4): 10.0 ml EF(MOD-sp4): 78.7 % Normal Measurement Values: + + :LVIDd (3.5-5.7cm) IVSd (0.6-1.1cm) LVPWd (0.6-1.1cm) Aortic Root (2.0-3.7cm)Left Atrium (1.5-4.0cm): :LV Vol(d) (76-115ml) LV Vol(s) (29-48ml) Ejec Fraction (50-65%)PV Patrick (0.6- 1.2m/s) TV Patrick (0.4-1.0m/s) : :MV E Patrick (0.8-1.0m/s)MV A Patrick (0.3-1.0m/s)LVOT Patrick (0.7-1.2m/s) Asc Ao Patrick ( 0.9-1.8m/s) : + + Doppler Measurements & Calculations MV E max patrick: 82.4 cm/sec Ao mean P.5 mmHg TR max patrick: 251.5 cm/sec MV A max patrick: 90.8 cm/sec Ao V2 mean: 127.4 cm/sec TR max P.3 mmHg MV E/A: 0.91 Ao V2 VTI: 34.1 cm RAP systole: 5.0 mmHg RVSP(TR): 30.3 mmHg Left Ventricle The left ventricle is normal in size. There is normal left ventricular wall thickness. The left ventricle is hyperdynamic. Ejection Fraction = 70-75%. There is Doppler evidence for diastolic dysfunction. No regional wall motion abnormalities noted. Right Ventricle The right ventricle is normal in size and function. Atria The left atrial size is normal. Right atrial size is normal. The interatrial septum is intact with no evidence for an atrial septal defect. Mitral Valve The mitral valve leaflets appear thickened, but open well. There is no evidence of mitral valve prolapse. There is no mitral valve stenosis. There is mild mitral regurgitation. Tricuspid Valve Normal tricuspid valve. There is mild tricuspid regurgitation. Right ventricular systolic pressure is normal. Aortic Valve The aortic valve is trileaflet. The aortic valve opens well. There is no aortic stenosis. Slight LVOT obstruction due to hypercontractility. There is no aortic insufficiency. Pulmonic Valve The pulmonic valve is normal in structure and function. Trace pulmonic valvular regurgitation. Great Vessels The aortic root is normal size. Pericardium/Pleural Trivial anterior pericardial effusion vs. fat pad. Conclusion A complete two-dimensional transthoracic echocardiogram was performed (2D, M-mode, Doppler and color flow Doppler). The left ventricle is hyperdynamic. Ejection Fraction = 70-75%. There is Doppler evidence for diastolic dysfunction. Slight LVOT obstruction due to hypercontractility. Final Reading Physician: Viviane Parra signed on 03/06/2016 10:30 AM Ordering Physician: Azul Chadwick Performed By: Leslie Webb, JESSICACS
--- NOTE | 2016-03-06 10:56 | HOSPPROG ---
Hospitalist Progress Note Assessment/Plan: Patient is a 60-year-old female with a history of colon cancer who initially had pneumonia on February 06. She was treated with azithromycin and felt like she has never really gotten better. Since her onset of symptoms she has had fever and chills. She had taken Advil around the clock for the past month. She woke up again with back pain chills and felt dizzy and came to the emergency room further evaluation. #. community-acquired pneumonia/bilateral lobe * chest x-ray shows stable bilateral lower lobar consolidations * she is on Levaquin * current blood culture show no growth * has been afebrile and with a stable white blood cell count * continues to feel poorly without any improvement * elevated sed rate, rheumatoid factor is negative, HIV negative, CEA is negative * may need bronchoscopy soon * ? BOOP/ would likely benefit from steroids * elevated eosinophils #. tachycardia with activity #. Acute hypoxemic respiratory failure * requiring 5 liters of O2 * Patient has no history of smoking as very active and fit * echocardiogram pending * chest xray ordered #. GERD * initiating PPI has helped her symptoms #.anemia/iron deficiency * per patient has no history of this * will not initiate iron therapy till she feels better/ should get a repeat colonoscopy w hx of colon ca #. constipation * add bowel protocol #. Osteoporosis: on Vitamin D * patient is very active/goes to the gym 4 x week #. constipation * add bowel protocol #. back pain * D-dimer was elevated * a CTA of the chest was performed which was negative for a PE * Tylenol with ibuprofen #. Mildly prominent mediastinal and hilar lymph nodes/ likely reactive * CT f/u in the future #. Hx of colon cancer s/p resection and chemo in 1992 #. plan: spoke w Dr Guerra/ he will see her today/ appreciate his involvement w caring for Rhianna. Dr Almeida evaluated Rhianna earlier today, Dr Han on for tomorrow. Subjective: Rhianna feels poorly, no improvement and is frustrated about getting antibiotics without feeling better. Objective: Vital Signs Temp Pulse Resp BP Pulse Ox 36.8 C 88 20 104/62 90 L 03/06/16 07:16 03/06/16 10:12 03/06/16 10:12 03/06/16 07:16 03/06/16 10:12 Laboratory Results 03/06/16 04:21 03/05/16 04:03 03/05/16 03/06/16 03/07/16 05:59 05:59 05:59 Intake Total 1100 400 Balance 1100 400 - Physical Exam Constitutional: appears nourished Eyes: PERRL Ears, Nose, Mouth, Throat: hearing normal Cardiovascular: regular rate and rhythym Respiratory: rhonchi (right base) Gastrointestinal: normoactive bowel sounds Skin: warm Musculoskeletal: no muscle tenderness Neurologic: AAOx3 Psychiatric: interacting appropriately, other (frustrated) ICD10 Worksheet Patient Problems: Problems Problem Status Diagnosed Hypoxia Acute Pneumonia Acute
[2016-03-06] MEDS: ONDANSETRON DISINTEGRATING 4 MG TAB PO PRN ×3 (11:58→20:54)
[2016-03-06] MEDS: HYDROCODONE/APAP 5/325 TAB PO PRN ×3 (11:58→20:54)
--- NOTE | 2016-03-06 12:29 | DX ---
Chest, PA and Lateral Views - March 06, 2016, at 11:22 a.m. Clinical History: 60-year-old female who presents for follow up of a pneumonia. Comparison Study: CT and radiography imaging of the chest, dated March 03, 2016. Findings: Oxygen tubing is in place. The cardiac and mediastinal silhouette are stable, and there ar e bilateral persistent infiltrates involving the right middle lobe, lingula, and the right and left l ower lobes. There is slightly less pronounced consolidation in the right middle lobe (as seen on the lateral view). The trachea is midline. There is no pneumothorax. Minimal apical pleural thickening is seen. The osseous structures are age-appropriate. The patient's arms obscure the anterior retrostern al space on the lateral view. Impression: Persistent bilateral extensive lower lung zone infiltrates, with slightly less consolida tion involving the right middle lobe than on March 03, 2016.
[2016-03-07 05:43] LABS: % IMMATURE GRANULYOCYTES 0.4 % (0.0-1.1); ABSOLUTE IMMATURE GRANULOCYTES 0.03 10^3/uL (0.00-0.10); ADD DIFF? NO; ADD MORPH? NO; ADD SCAN? NO; ATYPICAL LYMPHOCYTE FLAG 10 (0-99); FRAGMENT RBC FLAG 0 (0-99); HEMATOCRIT 33.6 % (38.0-47.0); LEFT SHIFT FLG 0 (0-99); LIPEMIA HEMOLYSIS FLAG 80 (0-99); MEAN CELL HEMOGLOBIN 29.6 pg (27.9-34.1); MEAN CELL HEMOGLOBIN CONCENTR. 32.7 g/dL (32.4-36.7); MEAN CELL VOLUME 90.3 fL (81.5-99.8); MEAN PLATELET VOLUME 9.4 fL (8.7-11.7); PLATELET CLUMPS FLAG 10 (0-99); PLATELET COUNT 389 10^3/uL (150-400); RED BLOOD CELL COUNT 3.72 10^6/uL (4.18-5.33); RED CELL DISTRIBUTION WIDTH 12.5 % (11.5-15.2)
[2016-03-07 05:51] LABS: INR 1.14 (0.83-1.16); PROTIME(PATIENT) 14.5 SEC (12.0-15.0)
[2016-03-07] MEDS: ONDANSETRON DISINTEGRATING 4 MG TAB PO PRN ×3 (05:51→21:55)
[2016-03-07] MEDS: HYDROCODONE/APAP 5/325 TAB PO PRN ×3 (05:51→21:55)
[2016-03-07 05:52] LABS: APTT 30.9 SEC (23.0-38.0)
[2016-03-07] MEDS: SENNOSIDES/DOCUSATE SODIUM TAB PO SCH ×2 (09:01→21:48)
[2016-03-07] MEDS: PANTOPRAZOLE SODIUM 40 MG TAB PO SCH (09:01)
--- NOTE | 2016-03-07 11:37 | GCON ---
[f rep st] CONSULTATION INPATIENT INFECTIOUS DISEASE CONSULTATION. REFERRING PHYSICIAN: Azul Chadwick NP REASON FOR REFERRAL: Bilateral pneumonia. HISTORY OF PRESENT ILLNESS: Patient is a 60-year-old female who has a remote history of colon cancer , who was admitted to [facility] on 03/03/2016 after dealing with approximately 1 month or more of respiratory and fatigue complaints initially diagnosed as likely infectious pneumonia. Taylor tamez was initially treated with azithromycin, which she completed a 5 day course of. After the azithromy butch treatment, she had no symptomatic improvement. Then saw her primary care physician, was started o n oral Levaquin, but during that course felt that she was getting worse so presented to [facility] on 03/03/2016. The patient was admitted and since that date has needed increasing amounts of oxygen. Her CT angiogram did not show any blood clot. However, a multifocal bilateral pneumonia w as further delineated in more detail from her chest x-ray. We are consulted to help guide the diagnos tic pathway to figure out the etiology of her bilateral infiltrates. She is currently resting comfort ably in her hospital bed. She is on approximately 10 L of supplemental oxygen. Her pulse ox varies fr om the high 70s to mid 90s during conversation. She complains of bilateral mid back pain. PAST MEDICAL HISTORY: 1. Colon cancer age 37. Status post resection and chemotherapy in 1992. No episodes of recurrence. 2. Lichen planus diagnosed approximately 2-3 years ago. Initially presented on her upper legs, but a lso included her vulvar area. 3. Irritable bowel syndrome. 4. History of diverticulitis. 5. History of venous clot in her jugular vein. PAST SURGICAL HISTORY: 1. Status post hernia repair. 2. Status post colon resection. 3. Status post vulvectomy. ANTIBIOTICS: Levaquin. ALLERGIES: Patient reported clindamycin, ciprofloxacin had caused vomiting in the past. SOCIAL HISTORY: Denies any tobacco or drug use. Only occasional alcohol use. Patient lives independe ntly. FAMILY HISTORY: Unable to obtain secondary to patient being adopted. REVIEW OF SYSTEMS: Other than detailed above in the history of present illness, a comprehensive 10 s ystem review is negative. PHYSICAL EXAMINATION: VITAL SIGNS: The patient is afebrile, heart rate mid 80s, respiratory rate 16, blood pressure 120s over 80s. The O2 saturations vary from 78 to 95 during the interview. GENERAL: This is a well-formed, well-nourished older female in no acute distress. She is not toxic in [facility]. She is alert and oriented x3. She has a pleasant demeanor. HEENT: Normocephalic for age. Head at raumatic. No scleral icterus. No oral lesion. No drainage from the nares. EYES: Lids and conjunctivae are within normal limits. Pupils are equal and round bilaterally. NECK: Supple. No meningismus. LUNG S: Patient has clear lungs apart from fine crackles in the bases bilaterally. She has good effort. Sh e is not tachypneic. HEART: Regular rate and rhythm. No murmur, rub, or gallop noted. No significant peripheral edema. ABDOMEN: Soft, nontender. No masses. SKIN: Warm and dry to the touch. No rash or le niyah noted. MUSCULOSKELETAL: No muscle belly tenderness is noted. No joint line effusion or arthritis is seen. NEURO: Cranial nerves 2-12 seem to be intact. Peripheral sensation seems intact in all extr emities. LABORATORY DATA: Patient has a CBC dated 03/06/2016 which shows a white blood cell count of 9.05, he moglobin of 10.9, hematocrit of 33.3, platelet count of 445, differential within normal limits. Serum chemistries dated 03/05/2016 shows a sodium of 139, potassium 4.7, chloride of 103, bicarbonate of 2 9, BUN of 11, and creatinine of 0.6. Of note, the erythrocyte sedimentation rate earlier in the stay was greater than the highest margin of 145. MICROBIOLOGIC DATA: All cultures are negative or no growth to date. RADIOLOGIC DATA: Patient has multiple chest x-rays and a CT scan showing bilateral multifocal infilt rates. These are not typical appearing consolidations. ASSESSMENT: Bilateral pneumonias nonresponsive to empiric therapy with both macrolides and fluoroqui nolones. The patient is now status post 6 days of Levaquin with only increasing needs of oxygenation. She is afebrile. However, her markers of inflammation such as her erythrocyte sedimentation rate are extraordinarily high. I think this constellation of findings pushes me to suspect a pulmonary vascul itis. I would suspect polyangiitis with granulomatosis is possible. Goodpasture syndrome is also in t he differential. Cryptogenic organizing pneumonia or bronchiolitis obliterans with organizing pneumon ia is also considered. Eosinophilic vasculitis should also be in the differential. Regardless, did di scuss with Pulmonary about bronchoscopy and biopsies. This will be scheduled for tomorrow afternoon. At this point, I do not think there is any utility in continuing empiric antibiotic therapy. Antinucl ear cytoplasmic antibody panel is pending. Given the potential that the pathology may be disrupted by empiric steroid therapy, will hold off on this for now as the patient does not seem to be in signifi cant respiratory distress. If, however, this should occur in the interval to tissue biopsy, would adv ocate the use of IV Solu-Medrol to start on a high pulse dosed. This was discussed with Azul rodrigez NP. At this point, unless laboratories return with some floridly positive autoantibodies, I think this diagnosis will be made by tissue and pathology. We should know within 24 hours if the tissue be ing obtained from the bronchoscopy whether there was an adequate sample. If the sample is inadequate, then open biopsy through the Stover tube thoracoscopy would likely be pursued. PLAN: 1. Set up for bronchoscopy tomorrow with Pulmonary. 2. Discontinue Levaquin. 3. Follow clinical course. 4. Continue oxygenation support. /[id number]/MODL
[2016-03-07 13:52] LABS: GLOMERULAR BSMNT MEMBRANE IGG <0.2 U (())
--- NOTE | 2016-03-07 13:58 | SOAPPROG ---
SOAP Progress Note Assessment/Plan: Assessment: Pulmonary infiltrates. Presumably community-acquired pneumonia, however no improvement after 6 days of Levaquin. Clinically looks fairly good but does not feel any better. Rales persist, right greater than left. Not bringing up any mucus. Erythrocyte sedimentation rate is significantly increased raising possibility of inflammatory disorders/vasulitis. HIV negative. Plan: Bronchoscopy today Subjective: comfortable Objective: Vital Signs Temp Pulse Resp BP Pulse Ox 36.9 C 95 14 121/66 H 95 03/07/16 07:25 03/07/16 07:25 03/07/16 07:25 03/07/16 07:25 03/07/16 07:25 Laboratory Results 03/07/16 05:30 03/05/16 04:03 03/06/16 03/07/16 03/08/16 05:59 05:59 05:59 Intake Total 1100 400 Balance 1100 400 PT 14.5 SEC (12.0-15.0) 03/07/16 05:30 INR 1.14 (0.83-1.16) 03/07/16 05:30 Physical Exam - Physical Exam General Appearance: alert, no apparent distress EENT: PERRL/EOMI, normal ENT inspection, pharynx normal, TMs normal Neck: non-tender, full range of motion, supple, normal inspection Respiratory: crackles (bases), No respiratory distress, No stridor, No wheezing Cardiac/Chest: normal peripheral pulses, regular rate, rhythm Peripheral Pulses: 2+: carotid (R), carotid (L), femoral (R), femoral (L), dorsalis-pedis (R), dorsalis-pedis (L) Abdomen: normal bowel sounds, non-tender, soft Pelvic Exam: deferred Rectal: deferred Skin: normal color, warm/dry Extremities: normal range of motion, non-tender, normal inspection, normal capillary refill ICD10 Worksheet Patient Problems: Problems Problem Status Diagnosed Hypoxia Acute Pneumonia Acute
[2016-03-07] MEDS ORDERED: LIDOCAINE 1% 30 ML SDV ONE (13:59)
[2016-03-07] MEDS ORDERED: LIDOCAINE 2% JELLY 5 ML TUBE ONE (13:59)
[2016-03-07] MEDS ORDERED: fentaNYL 100 MCG/2 ML INJ ONE (13:59)
[2016-03-07] MEDS ORDERED: MIDAZOLAM 2 MG/2 ML VIAL ONE (13:59)
[2016-03-07] MEDS ORDERED: LEVALBUTEROL 1.25 MG/3 ML DEYVIAL IH ONE (14:00)
[2016-03-07 15:18] LABS: PNEUMOCYSTIS REQUEST RECEIVED
--- NOTE | 2016-03-07 15:21 | DX ---
Portable Chest, Single View 03/07/2016 15:01 Indication: Bronchoscopy. Evaluate for pneumothorax. Comparison: 2 view chest dated 03/06/2016 Findings: No pneumothorax. Multifocal bibasilar airspace consolidation has not significantly changed since one day prior. No interstitial edema. Heart size normal. Impression: No pneumothorax following bronchoscopy.
--- NOTE | 2016-03-07 16:20 | HOSPPROG ---
Hospitalist Progress Note Assessment/Plan: Patient is a 60-year-old female with a history of colon cancer who initially had pneumonia on February 06. She was treated with azithromycin and felt like she has never really gotten better. Since her onset of symptoms she has had fever and chills. She had taken Advil around the clock for the past month. She woke up again with back pain chills and felt dizzy and came to the emergency room further evaluation. # Presumed community-acquired pneumonia-chest x-ray (personally reviewed and interpreted) shows stable bilateral lower lobar consolidations blood culture NGTD- elevated sed rate, rheumatoid factor is negative, HIV negative, CEA is negative - NPO for bronchoscopy today - discontinuing antibiotics per Infectious Disease # Acute hypoxemic respiratory failure - oxygen saturations 95% on 2 L transient have thoracic echocardiogram reviewed with normal left ventricular ejection fraction- even hyperdynamic # GERD - cont PPI # anemia/iron deficiency- should get a repeat colonoscopy w hx of colon ca- H& H - follow H&H # constipation - cont bowel protocol # Osteoporosis: on Vitamin D # back pain- D-dimer was elevated- a CTA of the chest was performed which was negative for a PE - Tylenol with ibuprofen # Mildly prominent mediastinal and hilar lymph nodes/ likely reactive * CT f/u in the future # Hx of colon cancer s/p resection and chemo in 1992 # Disposition greater than 2 midnights as requiring additional diagnostics for acute care have discussed the case with nursing- we will discontinue IV antibiotics per Infectious Disease and plan for bronchoscopy today Subjective: very worried about bronchoscopy Objective: Vital Signs Temp Pulse Resp BP Pulse Ox 37.1 C 92 16 120/82 H 95 03/07/16 16:00 03/07/16 16:00 03/07/16 16:00 03/07/16 16:00 03/07/16 07:25 Laboratory Results 03/07/16 05:30 03/05/16 04:03 03/06/16 03/07/16 03/08/16 05:59 05:59 05:59 Intake Total 1100 400 Balance 1100 400 PT 14.5 SEC (12.0-15.0) 03/07/16 05:30 INR 1.14 (0.83-1.16) 03/07/16 05:30 - Physical Exam Constitutional: appears nourished Eyes: anicteric sclera Ears, Nose, Mouth, Throat: moist mucous membranes Cardiovascular: regular rate and rhythym Respiratory: inspiratory crackles Gastrointestinal: normoactive bowel sounds, soft, non-tender abdomen Genitourinary: no bladder fullness Skin: warm, normal color Musculoskeletal: No asymmetric calves Neurologic: AAOx3 Psychiatric: anxious Lymph, Heme, Immunologic: no cervical LAD ICD10 Worksheet Patient Problems: Problems Problem Status Diagnosed Hypoxia Acute Pneumonia Acute
--- NOTE | 2016-03-07 18:03 | DX ---
Intraoperative Fluoroscopy of the Chest CLINICAL HISTORY: 60-year-old female with bronchopneumonia presenting for bronchoscopy. FINDINGS: Dr. Parrish Han used 73 seconds of fluoroscopy time (exposure dose of 8.12 mGy), and a singl e spot matrix image at 2:20 PM identifies the tip of the bronchoscope over the perihilar distribution of the chest. IMPRESSION: Intraoperative fluoroscopy of the chest during bronchoscopy.
--- NOTE | 2016-03-07 19:30 | GPN ---
[f rep st] PROCEDURE NOTE PROCEDURE: Fiberoptic bronchoscopy. INDICATION: Lung infiltrates. ANESTHESIA GIVEN: She received Versed 5 mg, fentanyl 125 mcg. She also received 4% lidocaine nebuli zed and 1% lidocaine topically. The procedure was performed in the bronchoscopy suite with continuous pulse ox EKG and blood pressure monitoring. Please note, were used throughout the procedure. DESCRIPTION OF PROCEDURE: Bronchoscope was entered orally. Vocal cords were visualized and opposed easily. Trachea and fadia were visualized and showed no endobronchial lesions and normal-appearing mucosa. Bronchoscope entered in the right lung. Right upper lobe, right middle lobe, right lower lo be including subsegments were subsequently visualized and showed no endobronchial lesions and normal- appearing mucosa. Bronchoscope entered in the left lung. Left upper lobe, lingula, left lower lobe including subsegments were subsequently visualized and showed no endobronchial lesions and normal-andressa earing mucosa. Via fluoroscopy, transbronchial biopsies were taken from the left lower lobe. These were sent for pathology. Bronchoalveolar lavage was taken from the left lower lobe. This was sent f or C and S, AFB, fungal cultures, and cytology as well as cell count and differential. Bronchoscope was then removed. Patient tolerated the procedure well. There were no apparent complications. Port able chest x-ray has been called for. /[id number]/MODL
[2016-03-07 20:48] LABS: CYTOLOGY REQUISITION RECEIVED
[2016-03-08] MEDS: HYDROCODONE/APAP 5/325 TAB PO PRN ×3 (05:19→19:53)
[2016-03-08] MEDS: ONDANSETRON DISINTEGRATING 4 MG TAB PO PRN ×3 (05:19→19:54)
[2016-03-08 05:36] LABS: HEMATOCRIT 33.2 % (38.0-47.0); HEMOGLOBIN 10.8 g/dL (12.6-16.3); LIPEMIA HEMOLYSIS FLAG 80 (0-99); MEAN CELL HEMOGLOBIN 29.2 pg (27.9-34.1); MEAN CELL HEMOGLOBIN CONCENTR. 32.5 g/dL (32.4-36.7); MEAN CELL VOLUME 89.7 fL (81.5-99.8); PLATELET COUNT 402 10^3/uL (150-400); RED CELL DISTRIBUTION WIDTH 12.6 % (11.5-15.2)
[2016-03-08 06:11] LABS: ANION GAP 11 mEq/L (8-16); CALCIUM 8.7 mg/dL (8.5-10.4); CARBON DIOXIDE 29 mEq/l (22-31); CHLORIDE 98 mEq/L (97-110); CREATININE 0.6 mg/dL (0.6-1.0); GLOMERULAR FILTRATION RATE > 60; GLUCOSE 94 mg/dL (70-100); POTASSIUM 4.4 mEq/L (3.5-5.2); SODIUM 138 mEq/L (134-144)
[2016-03-08] MEDS: PANTOPRAZOLE SODIUM 40 MG TAB PO SCH (08:23)
[2016-03-08] MEDS: SENNOSIDES/DOCUSATE SODIUM TAB PO SCH ×2 (08:23→19:53)
--- NOTE | 2016-03-08 13:22 | HOSPPROG ---
Hospitalist Progress Note Assessment/Plan: Patient is a 60-year-old female with a history of colon cancer who initially had pneumonia on February 06. She was treated with azithromycin and felt like she has never really gotten better. Since her onset of symptoms she has had fever and chills. She had taken Advil around the clock for the past month. She woke up again with back pain chills and felt dizzy and came to the emergency room further evaluation. # Presumed community-acquired pneumonia-CXR post bronch (personally reviewed and interpreted) shows stable bilateral lower lobar consolidations no ptx blood culture NGTD- elevated sed rate, rheumatoid factor is negative, HIV negative, CEA is negative - Will make decisions regarding IV steroids and surgery re-consultation for possible VATS based on prelim path today - continue no antibiotics at this time # Acute hypoxemic respiratory failure - oxygen saturations 93% on 3 L echo reviewed with normal left ventricular ejection fraction- even hyperdynamic - continue current care # GERD - cont PPI # anemia/iron deficiency- should get a repeat colonoscopy w hx of colon ca- H& H - follow H&H # constipation - cont bowel protocol # Osteoporosis: on Vitamin D # back pain- D-dimer was elevated- a CTA of the chest was performed which was negative for a PE - Tylenol with ibuprofen # Mildly prominent mediastinal and hilar lymph nodes/ likely reactive * CT f/u in the future # Hx of colon cancer s/p resection and chemo in 1992 # Disposition greater than 2 midnights as requiring additional diagnostics for acute care I have discussed the case with Dr. Han- we will make decisions regarding IV steroids and/or re-biopsy with VATS based on prelim results today Subjective: does not feel well - wants answers Objective: Vital Signs Temp Pulse Resp BP Pulse Ox 36.3 C 70 20 121/81 H 92 03/08/16 07:42 03/08/16 07:42 03/08/16 07:42 03/08/16 07:42 03/08/16 07:42 Microbiology 03/07/16 14:20 Gram Stain - Final Lung Left Lower Lobe - Bronchial Washings Laboratory Results 03/08/16 05:31 03/08/16 05:31 03/07/16 03/08/16 03/09/16 05:59 05:59 05:59 Intake Total 400 350 Balance 400 350 PT 14.5 SEC (12.0-15.0) 03/07/16 05:30 INR 1.14 (0.83-1.16) 03/07/16 05:30 - Physical Exam Constitutional: appears nourished Eyes: anicteric sclera Ears, Nose, Mouth, Throat: moist mucous membranes Cardiovascular: regular rate and rhythym Respiratory: inspiratory crackles Gastrointestinal: normoactive bowel sounds, soft, non-tender abdomen Genitourinary: no bladder fullness Skin: warm, normal color Musculoskeletal: No asymmetric calves Neurologic: AAOx3 Psychiatric: anxious Lymph, Heme, Immunologic: no cervical LAD ICD10 Worksheet Patient Problems: Problems Problem Status Diagnosed Hypoxia Acute Pneumonia Acute
--- NOTE | 2016-03-08 13:31 | SOAPPROG ---
SOAP Progress Note Assessment/Plan: Assessment/Plan: * Pulmonary infiltrates. Presumably community-acquired pneumonia, however no improvement after 6 days of Levaquin. Clinically looks fairly good but does not feel any better. Rales persist, right greater than left. Not bringing up any mucus. Erythrocyte sedimentation rate is significantly increased raising possibility of inflammatory disorders/vasulitis. HIV negative. -bronch performed. Path pending. If diagnostic, will begin treatment. If nondiagnostic, would push on to VATS/lung bx. Subjective: Comfortable. Objective: Vital Signs Temp Pulse Resp BP Pulse Ox 36.3 C 70 20 121/81 H 92 03/08/16 07:42 03/08/16 07:42 03/08/16 07:42 03/08/16 07:42 03/08/16 07:42 Microbiology 03/07/16 14:20 Gram Stain - Final Lung Left Lower Lobe - Bronchial Washings Laboratory Results 03/08/16 05:31 03/08/16 05:31 03/07/16 03/08/16 03/09/16 05:59 05:59 05:59 Intake Total 400 350 Balance 400 350 PT 14.5 SEC (12.0-15.0) 03/07/16 05:30 INR 1.14 (0.83-1.16) 03/07/16 05:30 Physical Exam - Physical Exam General Appearance: alert, no apparent distress EENT: PERRL/EOMI, normal ENT inspection, pharynx normal Respiratory: crackles (few), No respiratory distress, No stridor, No wheezing Cardiac/Chest: normal peripheral pulses, regular rate, rhythm Peripheral Pulses: 2+: carotid (R), carotid (L), femoral (R), femoral (L), dorsalis-pedis (R), dorsalis-pedis (L) Abdomen: normal bowel sounds, non-tender, soft Pelvic Exam: deferred Rectal: deferred Skin: normal color, warm/dry Extremities: normal range of motion, non-tender, normal inspection, normal capillary refill ICD10 Worksheet Patient Problems: Problems Problem Status Diagnosed Hypoxia Acute Pneumonia Acute
--- NOTE | 2016-03-08 18:07 | PCMIDPN ---
Assessment/Plan: Assessment/Plan: * Bilateral pulmonary infiltrates unresponsive to antibiotic therapy: Most likely non-infectious inflammatory etiology. Await pathology findings. Agree with plan for open lung biopsy if transbronchial biopsy unrevealing. Continue to observe off antibiotics. Clinical findings and plan discussed with patient. 03/08/16 18:04 Subjective: Patient feels tired. Intermittent cough without interval change. Objective: Vital Signs Temp Pulse Resp BP Pulse Ox 36.7 C 85 20 119/70 89 L 03/08/16 16:00 03/08/16 16:49 03/08/16 07:42 03/08/16 16:00 03/08/16 16:49 Microbiology 03/07/16 14:20 Gram Stain - Final Lung Left Lower Lobe - Bronchial Washings Laboratory Results 03/08/16 05:31 03/08/16 05:31 03/07/16 03/08/16 03/09/16 05:59 05:59 05:59 Intake Total 400 350 Balance 400 350 ESR > 145 MM/HR (0-30) H 03/04/16 04:14 BAL mixed oral regan Biopsy pending Blood cultures negative CT reviewed showing bilateral consolidation with lower lobe predominance - Physical Exam General Appearance: alert, no apparent distress, thin EENT: pharynx normal, No scleral icterus Respiratory: crackles (right base), No respiratory distress Cardiac/Chest: regular rate, rhythm, systolic murmur Abdomen: non-tender, No distended ICD10 Worksheet Patient Problems: Problems Problem Status Diagnosed Hypoxia Acute Pneumonia Acute
[2016-03-08] MEDS: predniSONE 20 MG TAB PO SCH (20:21)
[2016-03-08] MEDS: LORazepam 0.5 MG TAB PO PRN (20:21)
[2016-03-08 22:08] VITALS: RESP 16
[2016-03-09] MEDS: HYDROCODONE/APAP 5/325 TAB PO PRN ×2 (04:58→11:01)
[2016-03-09] MEDS: ONDANSETRON DISINTEGRATING 4 MG TAB PO PRN (04:58)
[2016-03-09 05:50] LABS: HEMATOCRIT 34.8 % (38.0-47.0); HEMOGLOBIN 11.1 g/dL (12.6-16.3); LIPEMIA HEMOLYSIS FLAG 80 (0-99); MEAN CELL HEMOGLOBIN 29.1 pg (27.9-34.1); MEAN CELL HEMOGLOBIN CONCENTR. 31.9 g/dL (32.4-36.7); MEAN CELL VOLUME 91.1 fL (81.5-99.8); PLATELET COUNT 467 10^3/uL (150-400); RED BLOOD CELL COUNT 3.82 10^6/uL (4.18-5.33); RED CELL DISTRIBUTION WIDTH 12.6 % (11.5-15.2)
[2016-03-09 06:10] LABS: ANION GAP 10 mEq/L (8-16); CALCIUM 9.1 mg/dL (8.5-10.4); CARBON DIOXIDE 30 mEq/l (22-31); CHLORIDE 101 mEq/L (97-110); CREATININE 0.5 mg/dL (0.6-1.0); GLOMERULAR FILTRATION RATE > 60; GLUCOSE 132 mg/dL (70-100); SODIUM 141 mEq/L (134-144)
[2016-03-09 07:22] VITALS: BP 109/80; PULSE 74; TEMP 97.9; O2SAT 93
[2016-03-09] MEDS: LORazepam 0.5 MG TAB PO PRN (09:04)
--- NOTE | 2016-03-09 09:04 | HOSPPROG ---
Hospitalist Progress Note Assessment/Plan: Patient is a 60-year-old female with a history of colon cancer who initially had pneumonia on February 06. She was treated with azithromycin and felt like she has never really gotten better. Since her onset of symptoms she has had fever and chills. She had taken Advil around the clock for the past month. She woke up again with back pain chills and felt dizzy and came to the emergency room further evaluation. # IMAGERY INTELLIGENCE -CXR post bronch (personally reviewed and interpreted) shows stable bilateral lower lobar consolidations no ptx, transbronchial bx shows organizing pneumonitis. BCx NGTD. Elevated sed rate, RF negative, HIV negative, CEA is negative. Pt completed Macrolide course followed by 6 d course of Levaquin without improvement -Started on high dose Prednisone yesterday, will cont -F/U further recs from Pulm # Acute hypoxemic respiratory failure - oxygen saturations 93% on 3 L echo reviewed with normal left ventricular ejection fraction- even hyperdynamic - continue current care # GERD - cont PPI # anemia/iron deficiency- should get a repeat colonoscopy w hx of colon ca- H& H - follow H&H # constipation - cont bowel protocol # Osteoporosis: on Vitamin D # back pain- D-dimer was elevated- a CTA negative for a PE - Tylenol with ibuprofen # Mildly prominent mediastinal and hilar lymph nodes/ likely reactive * CT f/u in the future # Hx of colon cancer s/p resection and chemo in 1992 # DVT PPLX - Lovenox # Full code # Disposition greater than 2 midnights as requiring additional diagnostics for acute care Objective: Vital Signs Temp Pulse Resp BP Pulse Ox 36.6 C 74 16 109/80 93 03/09/16 07:20 03/09/16 07:20 03/09/16 07:20 03/09/16 07:20 03/09/16 07:20 Microbiology 03/07/16 14:20 Mycobacterial Smear (ARY) - Final Lung Left Lower Lobe - Bronchial Washings 03/07/16 14:20 Gram Stain - Final Lung Left Lower Lobe - Bronchial Washings Laboratory Results 03/09/16 04:14 03/09/16 04:14 03/08/16 03/09/16 03/10/16 05:59 05:59 05:59 Intake Total 350 300 Balance 350 300 PT 14.5 SEC (12.0-15.0) 03/07/16 05:30 INR 1.14 (0.83-1.16) 03/07/16 05:30 ICD10 Worksheet Patient Problems: Problems Problem Status Diagnosed Hypoxia Acute Pneumonia Acute
[2016-03-09] MEDS: PANTOPRAZOLE SODIUM 40 MG TAB PO SCH (09:05)
[2016-03-09] MEDS: SENNOSIDES/DOCUSATE SODIUM TAB PO SCH (09:05)
[2016-03-09] MEDS: predniSONE 20 MG TAB PO SCH (09:05)
--- NOTE | 2016-03-09 11:05 | SOAPPROG ---
SOAP Progress Note Assessment/Plan: Assessment/Plan: * ILD-bx shows Cryptogenic Organizing Pneumonia -prednisone 60mg/day -follow up with me in the office in 2 weeks. Subjective: Comfortable. Objective: Vital Signs Temp Pulse Resp BP Pulse Ox 36.6 C 74 16 109/80 93 03/09/16 07:20 03/09/16 07:20 03/09/16 07:20 03/09/16 07:20 03/09/16 07:20 Microbiology 03/07/16 14:20 Mycobacterial Smear (ARY) - Final Lung Left Lower Lobe - Bronchial Washings 03/07/16 14:20 Gram Stain - Final Lung Left Lower Lobe - Bronchial Washings Laboratory Results 03/09/16 04:14 03/09/16 04:14 03/08/16 03/09/16 03/10/16 05:59 05:59 05:59 Intake Total 350 300 Balance 350 300 PT 14.5 SEC (12.0-15.0) 03/07/16 05:30 INR 1.14 (0.83-1.16) 03/07/16 05:30 Physical Exam - Physical Exam General Appearance: alert, no apparent distress EENT: PERRL/EOMI, normal ENT inspection, pharynx normal Neck: non-tender, full range of motion, supple, normal inspection Respiratory: crackles (basilar), No normal breath sounds, No stridor, No wheezing Cardiac/Chest: normal peripheral pulses, regular rate, rhythm Peripheral Pulses: 2+: carotid (R), carotid (L), femoral (R), femoral (L), dorsalis-pedis (R), dorsalis-pedis (L) Abdomen: normal bowel sounds, non-tender, soft Pelvic Exam: deferred Rectal: deferred Skin: normal color, warm/dry Extremities: normal range of motion, non-tender, normal inspection, normal capillary refill ICD10 Worksheet Patient Problems: Problems Problem Status Diagnosed Hypoxia Acute Pneumonia Acute
--- NOTE | 2016-03-09 18:17 | GDS ---
[f rep st] DISCHARGE SUMMARY DISCHARGE DIAGNOSES: 1. Cryptogenic organizing pneumonia. 2. Acute hypoxemic respiratory failure requiring 3 L of oxygen per minute by nasal cannula. 3. Iron-deficiency anemia. 4. Gastroesophageal reflux disease. 5. Constipation. 6. Mediastinal and hilar lymphadenopathy. CONSULTANTS: 1. Dr. Tunde Almeida, Pulmonology. 2. Dr. Rod Guerra, Infectious Disease. IMAGING STUDIES AND PROCEDURES: 1. CT chest angiogram March 03, 2016 was negative for pulmonary embolism, showed multifocal consol idation consistent with pneumonia, as well as a mildly prominent mediastinal and hilar lymph nodes, w hich were thought to be reactive. 2. Echocardiogram March 05, 2016 showed a normal ejection fraction of 70-75% with Doppler evidence for diastolic dysfunction, no wall motion abnormalities. 3. Bronchoscopy March 07, [address] Damion Han. HISTORY: For details, please see dictated history and physical dated March 03, [address] Wilmar patten. In brief, Ms. Flor is a 60-year-old female with a history of colon cancer, who was initially diagnosed with pneumonia on February 06 and completed a course of azithromycin. She did not improv e and when she developed fevers, chills, and worsening symptoms, she returned to her primary care [facility], where a chest x-ray showed findings consistent with bibasilar pneumonia. She was then starte d on Levaquin but 2 days later, she had persistent hypoxemia with worsening symptoms and was admitted to the hospital for further management. HOSPITAL COURSE: She was admitted to medical-surgical unit and was initially thought to be suffering from incompletely treated community-acquired pneumonia. Upon admission, she was continued on Levaqu in and received a total of 6 days of Levaquin without improvement. She ultimately underwent bronchos copy and transbronchial biopsies were negative for malignancy, but revealed findings consistent with organizing pneumonitis. She was then started on high-dose prednisone therapy and is discharged home to continue on high-dose prednisone, and will follow up with Dr. Parrish Han in the Outpatient Clinic. FOLLOWUP: 1. Dr. Parrish Han, Pulmonology. 2. Dr. Amairani Maldonado, primary care physician. DISCHARGE MEDICATIONS: Please see [employer] for complete updated outpatient medication list. New med ications on discharge include: 1. Robitussin DM 10 mL p.o. q.6 hours p.r.n. 2. Lorazepam 0.5 mg p.o. q.8 hours p.r.n., which she is prescribed while she is using prednisone. 3. Melatonin 3 mg p.o. q.h.s. p.r.n. 4. [place] 5/325, one p.o. q.6 hours p.r.n. #10, no refills. 5. Protonix 40 mg p.o. daily, #30, no refills. 6. Senokot 1-2 tablets p.o. b.i.d., #60m, no refills. 7. Prednisone 60 mg p.o. daily until followup with Pulmonology. 8. She will continue her home oxygen at 3 L/minute. /[id number]/MODL
== END 2016-03-09 12:38 | disposition home or self-care (01) | DRG 166 ==
LOC: F3E 09:44 → INTOOBSV 03-04 16:18 → OBSVTOIN 03-04 16:18
PROVIDERS: ADMIT Family Medicine; ATTEND Family Medicine
PROC: 0BBJ8ZX Excision of Left Lower Lung Lobe, Via Natural or Artificial Opening Endoscopic, Diagnostic (ICD-10-PCS; principal; 2016-03-07 14:00)
DX: J84.116 Cryptogenic organizing pneumonia (principal); J96.01 Acute respiratory failure with hypoxia; D50.9 Iron deficiency anemia, unspecified; K21.9 Gastro-esophageal reflux disease without esophagitis; K59.00 Constipation, unspecified; R59.1 Generalized enlarged lymph nodes; K58.9 Irritable bowel syndrome, unspecified; M81.0 Age-related osteoporosis without current pathological fracture; Z85.038 Personal history of other malignant neoplasm of large intestine; Z86.718 Personal history of other venous thrombosis and embolism
CPT/HCPCS: 83516-90; 83520-90; 86738-90; 87449-90; 96374; 97161-GP; G0378; J0171; J0696; J1650; J1885; J1956; J2250; J2405; J3010

== ENCOUNTER 2016-06-02 06:34 | Emergency (ER) | payer BC ==
[2016-06-02] MEDS ORDERED: NS 1,000 ML IV ONE (07:22)
--- NOTE | 2016-06-02 07:26 | EDPHY ---
H & P Time Seen by Provider: 06/02/16 07:03 HPI/ROS: Chief complaint. Abdominal pain HPI. 60-year-old female with somewhat complicated past medical history presents with abdominal pain for 1 week. Patient has a history of diverticulitis and has lower abdominal pain that feel similar. The pain is mainly in the left lower quadrant but some in the right lower quadrant as well. She has cramping and chills and fever. She saw her PCP yesterday and was started on Levaquin and has had 1 dose. No imaging studies were performed. She has also had nausea but no vomiting. She has had diarrhea. She was hospitalized in February for cryptogenic pneumonia and was treated with bronchoscopy and has been on high-dose prednisone since February. She has no respiratory symptoms now. No urinary symptoms however has had pyelonephritis and kidney stones in the past. Decreased appetite. Increased pain with movement ROS Constitutional. Fever and chills Eyes. no problems with vision ENT. no sore throat, no nasal drainage Cardiovascular. no chest pain Respiratory. no shortness of breath, no cough Abdominal. Left lower and right lower quadrant abdominal pain. Nausea and diarrhea . no problems urinating MS. no calf pain/swelling, no neck/back pain, no joint pain Skin. no rash Lymph. no swollen glands Neuro. no headache, no dizziness, no difficulty walking or with speech Past Medical/Surgical History: Past medical history is significant for colon cancer with resection. 2 hernia repairs. Vulvectomy pot, heart murmur, syncope, diverticulitis, IBS, atypical pneumonia, pyelonephritis, kidney stone, anemia, GERD Social History: Single, nonsmoker, no alcohol Smoking Status: Never smoked Physical Exam: General Appearance: Alert pleasant well-developed female moderate distress vital signs stable Eyes: Pupils equal and round no pallor or injection. ENT, Mouth: Mucous membranes are moist. Respiratory: There are no retractions, lungs are clear to auscultation. Cardiovascular: Regular rate and rhythm. Gastrointestinal: Abdomen is soft with tenderness in the left lower quadrant and some in the right lower quadrant. She also has some epigastric tenderness that has been present since using the prednisone and she attributes this to GERD. New findings are the lower abdominal pain. Bowel sounds are decreased. No masses. Neurological: Awake and alert, sensory and motor exams grossly normal. Skin: Warm and dry, no rashes. Musculoskeletal: Neck is supple nontender. Extremities symmetrical, full range of motion. Psychiatric: Patient is oriented X 3, there is no agitation. Constitutional: Initial Vital Signs Temperature (C) 36.9 C 06/02/16 06:35 Heart Rate 82 06/02/16 06:35 Respiratory Rate 18 06/02/16 06:35 Blood Pressure 151/82 H 06/02/16 06:35 O2 Sat (%) 93 06/02/16 06:35 O2 Delivery Mode Room Air Allergies/Adverse Reactions: ciprofloxacin Allergy (Intermediate, Verified 06/02/16 06:39) Vomiting clindamycin Allergy (Intermediate, Verified 06/02/16 06:39) Vomiting Home Medications: Medication Instructions Recorded Cholecalciferol Vit D3 [Vitamin D3 2,000 units PO DAILY 03/03/16 2000 units tab (OTC)] Cyanocobalamin [Vitamin B12 (*)] 1,000 mcg PO DAILY 03/03/16 Herbals/Supplements -Info Only 1 ea PO DAILY 03/03/16 Ibuprofen [Motrin (*)] 400 mg PO Q4 03/03/16 Hydrocodone/APAP 5/325 [[place] 1 tab PO Q6 PRN #10 tab 03/09/16 5/325 (*)] LORazepam [Ativan (*)] 0.5 mg PO Q8H PRN #20 tab 03/09/16 Melatonin [Melatonin 3 MG (*)] 3 mg PO HS PRN #30 tab 03/09/16 predniSONE 60 mg PO DAILY #90 tablet 03/09/16 Amox Tr/Potassium Clavulanate 2 each PO BID #30 tab 06/02/16 [Augmentin 1000MG ER Tablet (*)] Ondansetron Odt [Zofran Odt] 4 mg PO Q4PRN PRN #4 tab 06/02/16 Ranitidine HCl [Zantac] 150 mg PO 06/02/16 levOFLOXACIN [Levaquin] 500 mg PO 06/02/16 oxyCODONE/APAP 5/325 [Percocet 1 tab PO Q4-6PRN PRN #14 tab 06/02/16 5/325] Medical Decision Making - Diagnostics Imaging: Imaging Impressions Abdomen CT 06/02/16 07:22 Impression: 1. Thickening of the sigmoid colon with extensive pericolonic inflammation, compatible with diverticulitis, without free air or abscess. Please ensure the patient is current with colonoscopy screening. 2. Nonobstructing 3 mm left renal stone. 3. Near complete resolution of previously noted pneumonia with persistent basilar ground-glass opacities. 4. Additional findings as above. Findings discussed with Immanuel Menjivar on June 02, 2016 at 8:[address] abdomen and pelvis with IV contrast shows fairly significant sigmoid diverticulitis and inflammation. However there is no perforation or abscess. The CT is reviewed by me and discussed with Dr. Nugent Procedures: IV normal saline. Patient declines pain or nausea medication at this time ED Course/Re-evaluation: Re-evaluation at 8:10 a.m. and patient would like some medication for pain and nausea. She is given fentanyl and Zofran IV 8:35 a.m. patient and I discussed imaging study results, treatment plan including criteria for return importance of follow-up and further evaluation. The patient is only taking Levaquin and I recommended to her that we add metronidazole for complete bacterial coverage. Patient has had previously bad experience with metronidazole including vomiting and diarrhea and would prefer not to take metronidazole. She and I discussed alternative treatment of Augmentin rather than the Levaquin. She and I agreed she would stay on the Levaquin by itself for another 24 hours. If not improving she will discontinue the Levaquin and switched to the Augmentin. If she continues to improve she will stay with the Levaquin. We discussed returning for worsening pain, fever. We also discussed re-evaluation by Dr. Maldonado on Sunday certainly if not continuing to improve. Patient expresses understanding and agreement Differential Diagnosis: Abdominal pain and CT shows diverticulitis. I have considered pyelonephritis, urinary tract infection, diverticulitis, return of patient's colon cancer. - Data Points Laboratory Results: Laboratory Results 06/02/16 07:10 06/02/16 07:10 06/02/16 06/02/16 06/02/16 08:03 07:10 07:10 WBC 10.86 10^3/uL H 10^3/uL (3.80-9.50) RBC 4.44 10^6/uL 10^6/uL (4.18-5.33) Hgb 13.9 g/dL g/dL (12.6-16.3) Hct 41.4 % % (38.0-47.0) MCV 93.2 fL fL (81.5-99.8) MCH 31.3 pg pg (27.9-34.1) MCHC 33.6 g/dL g/dL (32.4-36.7) RDW 15.3 % H % (11.5-15.2) Plt Count 229 10^3/uL 10^3/uL (150-400) MPV 10.2 fL fL (8.7-11.7) Neut % (Auto) 65.8 % % (39.3-74.2) Lymph % (Auto) 24.5 % % (15.0-45.0) [place] % (Auto) 8.4 % % (4.5-13.0) Eos % (Auto) 0.5 % L % (0.6-7.6) Baso % (Auto) 0.3 % % (0.3-1.7) Nucleat RBC Rel Count 0.0 % % (0.0-0.2) Absolute Neuts (auto) 7.16 10^3/uL H 10^3/uL (1.70-6.50) Absolute Lymphs (auto) 2.66 10^3/uL 10^3/uL (1.00-3.00) Absolute Monos (auto) 0.91 10^3/uL H 10^3/uL (0.30-0.80) Absolute Eos (auto) 0.05 10^3/uL 10^3/uL (0.03-0.40) Absolute Basos (auto) 0.03 10^3/uL 10^3/uL (0.02-0.10) Absolute Nucleated RBC 0.00 10^3/uL 10^3/uL (0-0.01) Immature Gran % 0.5 % % (0.0-1.1) Immature Gran # 0.05 10^3/uL 10^3/uL (0.00-0.10) Sodium 141 mEq/L mEq/L (134-144) Potassium 3.6 mEq/L mEq/L (3.5-5.2) Chloride 106 mEq/L mEq/L (97-110) Carbon Dioxide 26 mEq/l mEq/l (22-31) Anion Gap 9 mEq/L mEq/L (8-16) BUN 19 mg/dL mg/dL (7-23) Creatinine 0.7 mg/dL mg/dL (0.6-1.0) Estimated GFR > 60 Glucose 84 mg/dL mg/dL (70-100) Calcium 9.4 mg/dL mg/dL (8.5-10.4) Lipase 53.0 IU/L IU/L (23-300) Urine Color PALE YELLOW Urine Appearance CLEAR Urine pH 6.0 (5.0-7.5) Ur Specific [place] > 1.035 H (1.002-1.030) Urine Protein NEGATIVE (NEGATIVE) Urine Ketones NEGATIVE (NEGATIVE) Urine Blood NEGATIVE (NEGATIVE) Urine Nitrate NEGATIVE (NEGATIVE) Urine Bilirubin NEGATIVE (NEGATIVE) Urine Urobilinogen NEGATIVE EU EU (0.2-1.0) Ur Leukocyte Esterase NEGATIVE (NEGATIVE) Ur Culture Indicated? NOT INDICATED (NI) Urine Glucose NEGATIVE (NEGATIVE) Medications Given: Discontinued Medications Fentanyl (Sublimaze) 100 mcg IVP EDNOW ONE Stop: 06/02/16 08:12 Last Admin: 06/02/16 08:18 Dose: 100 mcg Sodium Chloride (Ns) 1,000 mls @ 0 mls/hr IV ONCE ONE PRN Reason: Wide Open Stop: 06/02/16 07:23 Last Admin: 06/02/16 07:26 Dose: 1,000 mls Ondansetron HCl (Zofran) 4 mg IVP EDNOW ONE Stop: 06/02/16 08:12 Last Admin: 06/02/16 08:18 Dose: 4 mg Departure - Departure Disposition: Home, Routine, Self-Care Clinical Impression: Diverticulitis Qualifiers: Diverticulitis site: large intestine Diverticulitis bleeding: without bleeding Diverticulitis complication: without perforation or abscess Qualified Code(s): K57.32 - Diverticulitis of large intestine without perforation or abscess without bleeding Condition: Good Instructions: Diverticulitis (ED), Diverticulitis Diet (ED) Additional Instructions: Drink plenty of fluids and stay hydrated. Continue Levaquin and her prednisone today. If not improved tomorrow discontinue Levaquin and switched to Augmentin. Return for worsening pain or fever. Recheck on Sunday with Dr. Maldonado especially if not improving. Return sooner over the weekend for worsening symptoms Referrals: Amairani Maldonado MD [Primary Care Provider] - 2-3 days, if not improved Prescriptions: Amox Tr/Potassium Clavulanate [Augmentin 1000MG ER Tablet (*)] 2 each PO BID # 30 tab Ondansetron Odt [Zofran Odt] 4 mg PO Q4PRN PRN #4 tab PRN Reason: Nausea/Vomiting, Use 1st oxyCODONE/APAP 5/325 [Percocet 5/325] 1 tab PO Q4-6PRN PRN #14 tab PRN Reason: Pain, Moderate
[2016-06-02 07:28] LABS: % IMMATURE GRANULYOCYTES 0.5 % (0.0-1.1); ABSOLUTE IMMATURE GRANULOCYTES 0.05 10^3/uL (0.00-0.10); ADD DIFF? NO; ADD MORPH? NO; ADD SCAN? NO; ATYPICAL LYMPHOCYTE FLAG 0 (0-99); FRAGMENT RBC FLAG 20 (0-99); HEMATOCRIT 41.4 % (38.0-47.0); HEMOGLOBIN 13.9 g/dL (12.6-16.3); LEFT SHIFT FLG 0 (0-99); LIPEMIA HEMOLYSIS FLAG 80 (0-99); MEAN CELL HEMOGLOBIN 31.3 pg (27.9-34.1); MEAN CELL HEMOGLOBIN CONCENTR. 33.6 g/dL (32.4-36.7); MEAN CELL VOLUME 93.2 fL (81.5-99.8); MEAN PLATELET VOLUME 10.2 fL (8.7-11.7); PLATELET CLUMPS FLAG 10 (0-99); PLATELET COUNT 229 10^3/uL (150-400); RED BLOOD CELL COUNT 4.44 10^6/uL (4.18-5.33); RED CELL DISTRIBUTION WIDTH 15.3 % (11.5-15.2)
[2016-06-02 07:33] LABS: ANION GAP 9 mEq/L (8-16); CALCIUM 9.4 mg/dL (8.5-10.4); CARBON DIOXIDE 26 mEq/l (22-31); CHLORIDE 106 mEq/L (97-110); CREATININE 0.7 mg/dL (0.6-1.0); GLOMERULAR FILTRATION RATE > 60; GLUCOSE 84 mg/dL (70-100); POTASSIUM 3.6 mEq/L (3.5-5.2); SODIUM 141 mEq/L (134-144)
[2016-06-02] MEDS ORDERED: IOPAMIDOL (ISOVUE-300) 100 ML BTL IV ONE (07:33)
[2016-06-02] MEDS ORDERED: ONDANSETRON 4 MG/2 ML VIAL IVP ONE (08:11)
[2016-06-02] MEDS ORDERED: fentaNYL 100 MCG/2 ML INJ IVP ONE (08:11)
[2016-06-02 08:21] LABS: COLOR PALE YELLOW; LEUKOCYTE ESTERASE,URINE NEGATIVE (NEGATIVE); NITRITE,URINE NEGATIVE (NEGATIVE)
[2016-06-02 09:01] VITALS: BP 134/87; PULSE 65; RESP 16; TEMP 97.9; O2SAT 94
== END 2016-06-02 09:00 | disposition home or self-care (01) ==
DX: K57.32 Diverticulitis of large intestine without perforation or abscess without bleeding (principal); Z85.038 Personal history of other malignant neoplasm of large intestine
CPT/HCPCS: 96374; J2405; J3010; Q9967

== ENCOUNTER → 2016-07-12 | Outpatient (CLI) | payer BC | LOC: FIMAGING 13:29 → EDSTATUS 13:29 | PROVIDERS: ATTEND Internal Medicine Pulmonary Disease | DX: R91.8 Other nonspecific abnormal finding of lung field (principal) ==

== ENCOUNTER 2016-07-18 12:48 | Day surgery (SDC) | payer BC ==
[2016-07-18] MEDS ORDERED: LIDOCAINE 2% JELLY 5 ML TUBE ONE (13:10)
[2016-07-18] MEDS ORDERED: NALOXONE HCL 0.4 MG/ML INJ ONE (13:11)
[2016-07-18] MEDS ORDERED: FLUMAZENIL 0.5 MG/5 ML MDV IVP ONE (13:11)
[2016-07-18] MEDS ORDERED: fentaNYL 100 MCG/2 ML INJ ONE (13:12)
[2016-07-18] MEDS ORDERED: LIDOCAINE 1% 300 MG/30 ML SDV ONE (13:12)
[2016-07-18] MEDS ORDERED: MIDAZOLAM 2 MG/2 ML VIAL ONE (13:12)
[2016-07-18] MEDS ORDERED: LIDOCAINE HCL 4% TOPICAL SOLN 50ML ONE (13:17)
--- NOTE | 2016-07-18 16:32 | GPN ---
[f rep st] PROCEDURE NOTE PROCEDURE: Fiberoptic bronchoscopy. INDICATION: Upper lobe infiltrates. ANESTHESIA: She received 4% lidocaine nebulized, 1% lidocaine topically. She also received Versed 5 mg, fentanyl 125 mcg. Procedure was performed in the endoscopy suite with continuous pulse ox, EKG, and blood pressure mon itoring. Please note, the bronchoscope occurred in negative pressure room. N95 masks were used throughout th e procedure. DESCRIPTION OF PROCEDURE: Bronchoscope was entered orally. Vocal cords were visualized and opposed easily. Trachea and fadia were visualized and showed no endobronchial lesions and normal-appearin g mucosa. Bronchoscope is in the left lung. Left upper lobe, lingula, left lower lobe, including s ubsegments visualized, showed no endobronchial lesions and normal-appearing mucosa. Bronchoscope is in the right lung. Right upper lobe, right middle lobe, right lower lobe including sub-segments we re subsequently visualized and showed no endobronchial lesions and normal-appearing mucosa. Broncho alveolar lavage was taken from the right upper lobe. This was sent for C and S, AFB, fungal culture s. Patient tolerated the procedure well. There were no apparent complications. Portable chest x-r ay has been called for. /[id number]/MODL
== END 2016-07-18 15:16 | disposition home or self-care (01) ==
LOC: FSGY 12:48
PROVIDERS: ATTEND Internal Medicine Pulmonary Disease
PROC: 0B9C8ZX Drainage of Right Upper Lung Lobe, Via Natural or Artificial Opening Endoscopic, Diagnostic (ICD-10-PCS; principal; 2016-07-18 13:30)
DX: J84.116 Cryptogenic organizing pneumonia (principal)
CPT/HCPCS: J0171; J2250; J2310; J3010

== ENCOUNTER → 2016-09-01 | Outpatient (CLI) | payer BC | LOC: FIMAGING 13:38 | PROVIDERS: ATTEND Internal Medicine Pulmonary Disease | DX: R91.8 Other nonspecific abnormal finding of lung field (principal) ==

== ENCOUNTER → 2016-12-14 | Outpatient (CLI) | payer BC | LOC: FIMAGING 08:21 | PROVIDERS: ATTEND Internal Medicine | DX: Z12.31 Encounter for screening mammogram for malignant neoplasm of breast (principal) | CPT/HCPCS: G0202 ==

== ENCOUNTER → 2017-01-23 | Outpatient (CLI) | payer BC | LOC: FIMAGING 15:44 | PROVIDERS: ATTEND Internal Medicine Pulmonary Disease | DX: Z13.83 Encounter for screening for respiratory disorder NEC (principal) ==

== ENCOUNTER → 2017-03-03 | Outpatient (CLI) | payer BC | LOC: FIMAGING 13:02 | PROVIDERS: ATTEND Internal Medicine | DX: Z13.820 Encounter for screening for osteoporosis (principal); M81.0 Age-related osteoporosis without current pathological fracture ==

== ENCOUNTER → 2018-01-25 | Outpatient (CLI) | payer BC | LOC: FIMAGING 15:46 | PROVIDERS: ATTEND Internal Medicine | DX: Z12.31 Encounter for screening mammogram for malignant neoplasm of breast (principal) ==